=== PATIENT | male | born 1950 | race African-American/Black ===

== ENCOUNTER 2017-06-07 17:33 | Inpatient (IN) | payer MEDICARE, MEDICAID ==
[~2017-06-07] VITALS: Ht 172.7 cm; Wt 69.9 kg
[~2017-06-07 17:33] MED LIST: ALLO100T PO; ASPI-1159 PO; BACL-141 PO; DOCU-150 PO; DULO60CA44 PO; FOLI-43 PO; GABA-531 PO; MELA3TAB36 PO; MULT-1146 PO; TAMS-11 PO
[2017-06-07 18:08] LABS: BASOPHILS % 1.3 % (0.0-2.0); HEMOGLOBIN. 9.4 g/dL (14.0-18.0); LYMPHOCYTES % 24.5 % (20.0-50.0); MEAN CORPUSCULAR VOLUME 92.6 fL (80.0-94.0); MEAN PLATELET VOLUME 9.5 fl (7.4-10.4); MONOCYTES % 14.8 % (2.0-8.0); NEUTROPHILS % 57.4 % (40.0-76.0); PLATELET 193 x1000/uL (130-400); RED BLOOD CELL COUNT 3.24 mill/uL (4.7-6.1)
[2017-06-07 18:10] LABS: INR 1.1
[2017-06-07 18:23] LABS: CHLORIDE 95 mEq/L (98-107)
[2017-06-07 18:24] LABS: CARBON DIOXIDE 38 mEq/L (21-32)
[2017-06-07 18:31] LABS: TROPONIN I < 0.02 ng/mL (0.00-0.04)
[2017-06-07] MEDS ORDERED: TRAMADOL 50MG TABLET PO PRN (21:15)
[2017-06-07] MEDS ORDERED: NITROGLYCERIN 0.4MG TABLET SL SL PRN (21:15)
[2017-06-07] MEDS ORDERED: IPRATROPIUM/ALBUTEROL 0.5-3(2.5)MG/3ML NEB INH PRN (21:15)
[2017-06-07] MEDS ORDERED: CLONIDINE 0.1MG TABLET PO PRN (21:15)
[2017-06-07] MEDS ORDERED: LORAZEPAM 2MG/ML CPJ IV PRN (21:15)
[2017-06-07] MEDS ORDERED: MAGNESIUM/ALUMINUM HYDROXIDE/SIMETHICONE 30ML UDC PO PRN (21:15)
[2017-06-07] MEDS ORDERED: ONDANSETRON HCL 4MG/2ML VIAL IV PRN (21:15)
[2017-06-07] MEDS ORDERED: ACETAMINOPHEN 325MG TABLET PO PRN (21:15)
[2017-06-07] MEDS ORDERED: NA PHOS,M-B/NA PHOS,DI-BA ENEMA 118ML PR PRN (21:15)
[2017-06-07] MEDS ORDERED: GUAIFENESIN 200MG/10ML SUGAR FREE UDC PO PRN (21:15)
[2017-06-07 21:50] LABS: T4 FREE 1.11 ng/dL (0.76-1.46)
[2017-06-07 22:09] LABS: CREATINE KINASE 79 IU/L (39-308); TROPONIN I < 0.02 ng/mL (0.00-0.04)
[2017-06-07 22:09] LABS: VITAMIN B12 SERUM 464 pg/mL (211-911)
[2017-06-07 22:16] LABS: FOLIC ACID (FOLATE) SERUM > 20.00 ng/mL (>5.38)
[2017-06-07 23:15] VITALS: BP 138/65
[2017-06-08] VITALS: BP 138/65
[2017-06-08] MEDS ORDERED: LEVOFLOXACIN 500MG PREMIX 100 ML IV SCH (03:00)
[2017-06-08 04:00] VITALS: BP 159/66
[2017-06-08] MEDS: BACLOFEN 10MG TABLET PO SCH ×3 (06:27→20:34)
[2017-06-08] MEDS: GABAPENTIN 300MG CAPSULE PO SCH ×3 (06:27→20:34)
[2017-06-08] MEDS: MORPHINE SULFATE 2 MG/ML CPJ (NOT FOR IM USE) IV PRN ×2 (06:32→20:38)
[2017-06-08 07:35] LABS: CREATINE KINASE 65 IU/L (39-308); CREATINE KINASE MB FRACTION 2.3 ng/mL (0.5-3.6); TROPONIN I < 0.02 ng/mL (0.00-0.04)
[2017-06-08 08:00] VITALS: BP 128/70
[2017-06-08 08:50] LABS: *AMPHETAMINES SCREEN URINE NEGATIVE (NEGATIVE); *BARBITURATES SCREEN URINE NEGATIVE (NEGATIVE); *BENZODIAZEPINES SCREEN URINE NEGATIVE (NEGATIVE); *COCAINE SCREEN URINE NEGATIVE (NEGATIVE); CANNABINOID URINE SCREEN NEGATIVE (NEGATIVE); METHADONE URINE SCREEN NEGATIVE (NEGATIVE); OPIATES URINE SCREEN PRESUMTIVE POSITIVE (NEGATIVE); PHENCYCLIDINE URINE SCREEN NEGATIVE (NEGATIVE)
[2017-06-08] MEDS: PANTOPRAZOLE SODIUM 40 MG/VIAL IV SCH (09:00)
[2017-06-08] MEDS: ASPIRIN 325MG EC TABLET PO SCH (09:33)
[2017-06-08] MEDS: TAMSULOSIN HCL 0.4MG SR CAPSULE PO SCH (09:34)
[2017-06-08] MEDS: ENOXAPARIN 40MG/0.4ML SYR SUBCUT SCH (09:34)
[2017-06-08] MEDS: ALLOPURINOL 100 MG TABLET PO SCH (09:34)
[2017-06-08] MEDS: ZINC SULFATE 220 MG ( 50 ) CAPSULE PO SCH (09:34)
[2017-06-08] MEDS: METOPROLOL TARTRATE 25MG TABLET PO SCH ×2 (09:35→20:33)
[2017-06-08 10:21] LABS: CLARITY URINE CLOUDY (CLEAR); COLOR URINE DARK YELLOW (YELLOW); GLUCOSE URINE NEGATIVE (NEGATIVE); KETONES URINE TRACE (NEGATIVE); NITRITE URINE NEGATIVE (NEGATIVE); OCCULT BLOOD URINE NEGATIVE (NEGATIVE); PROTEIN URINE NEGATIVE (NEGATIVE); SPECIFIC GRAVITY URINE 1.024 (1.005-1.030)
[2017-06-08 10:22] LABS: LEUKOCYTE ESTERASE URINE NEGATIVE (NEGATIVE)
[2017-06-08 12:00] VITALS: BP 104/66
[2017-06-08] MEDS: DOCUSATE SODIUM 100MG CAPSULE PO PRN (15:14)
[2017-06-08 16:00] VITALS: BP 109/66
[2017-06-08 20:00] VITALS: BP 149/71
[2017-06-09] VITALS: BP_SYST 127; BP_SYST 149; BP_DIAS 65; BP_DIAS 77
[2017-06-09 04:00] VITALS: BP_SYST 153; BP_DIAS 65; BP_DIAS 75
[2017-06-09] MEDS: BACLOFEN 10MG TABLET PO SCH ×3 (05:08→20:49)
[2017-06-09] MEDS: GABAPENTIN 300MG CAPSULE PO SCH ×3 (05:08→20:49)
[2017-06-09] MEDS: LEVOFLOXACIN 500MG PREMIX 100 ML IV SCH (05:09)
[2017-06-09] MEDS: MORPHINE SULFATE 2 MG/ML CPJ (NOT FOR IM USE) IV PRN ×3 (05:16→20:50)
[2017-06-09 07:54] LABS: BASOPHILS % 0.9 % (0.0-2.0); EOSINOPHILS % 2.6 % (0.0-5.0); HEMATOCRIT. 30.5 % (42.0-52.0); HEMOGLOBIN. 9.7 g/dL (14.0-18.0); LYMPHOCYTES % 17.1 % (20.0-50.0); MEAN CORPUSCULAR VOLUME 91.5 fL (80.0-94.0); MEAN PLATELET VOLUME 10.3 fl (7.4-10.4); MONOCYTES % 13.4 % (2.0-8.0); PLATELET 165 x1000/uL (130-400); RED BLOOD CELL COUNT 3.33 mill/uL (4.7-6.1); RED CELL DISTRIBUTION WIDTH 16.3 % (11.6-14.6)
[2017-06-09 08:00] VITALS: BP 140/76
[2017-06-09 08:26] LABS: CHLORIDE 96 mEq/L (98-107)
[2017-06-09] MEDS: PANTOPRAZOLE SODIUM 40 MG/VIAL IV SCH (08:30)
[2017-06-09] MEDS: ZINC SULFATE 220 MG ( 50 ) CAPSULE PO SCH (08:31)
[2017-06-09] MEDS: METOPROLOL TARTRATE 25MG TABLET PO SCH ×2 (08:32→20:50)
[2017-06-09] MEDS: TAMSULOSIN HCL 0.4MG SR CAPSULE PO SCH (08:32)
[2017-06-09] MEDS: ALLOPURINOL 100 MG TABLET PO SCH (08:33)
[2017-06-09] MEDS: ENOXAPARIN 40MG/0.4ML SYR SUBCUT SCH (08:33)
[2017-06-09] MEDS: ASPIRIN 325MG EC TABLET PO SCH (08:34)
[2017-06-09 09:29] LABS: CARBON DIOXIDE 38 mEq/L (21-32); CREATINE KINASE 89 IU/L (39-308); HDL CHOLESTEROL 51 mg/dL (40-59); LDL CHOLESTEROL 51 mg/dL (5-100); TROPONIN I < 0.02 ng/mL (0.00-0.04)
[2017-06-09 12:00] VITALS: BP 123/62
[2017-06-09 16:00] VITALS: BP 128/60
[2017-06-09 20:00] VITALS: BP 138/71
[2017-06-09] MEDS: ZOLPIDEM TARTRATE 5MG TABLET PO PRN (20:53)
[2017-06-10] VITALS: BP 126/72
[2017-06-10 04:00] VITALS: BP 132/65
[2017-06-10] MEDS: BACLOFEN 10MG TABLET PO SCH ×3 (06:14→22:00)
[2017-06-10] MEDS: GABAPENTIN 300MG CAPSULE PO SCH ×3 (06:14→22:00)
[2017-06-10] MEDS: LEVOFLOXACIN 500MG PREMIX 100 ML IV SCH (06:14)
[2017-06-10] MEDS: MORPHINE SULFATE 2 MG/ML CPJ (NOT FOR IM USE) IV PRN ×3 (06:14→20:07)
[2017-06-10 08:00] VITALS: BP 118/66
[2017-06-10] MEDS: DOCUSATE SODIUM 100MG CAPSULE PO PRN (08:33)
[2017-06-10] MEDS: TAMSULOSIN HCL 0.4MG SR CAPSULE PO SCH (08:33)
[2017-06-10] MEDS: ALLOPURINOL 100 MG TABLET PO SCH (08:33)
[2017-06-10] MEDS: PANTOPRAZOLE SODIUM 40 MG/VIAL IV SCH (08:33)
[2017-06-10] MEDS: ASPIRIN 325MG EC TABLET PO SCH (08:34)
[2017-06-10] MEDS: ZINC SULFATE 220 MG ( 50 ) CAPSULE PO SCH (08:34)
[2017-06-10] MEDS: ENOXAPARIN 40MG/0.4ML SYR SUBCUT SCH (08:34)
[2017-06-10] MEDS: METOPROLOL TARTRATE 25MG TABLET PO SCH ×2 (08:38→22:00)
[2017-06-10 12:00] VITALS: BP 96/54
[2017-06-10] MEDS ORDERED: MAGNESIUM 2 G PREMIX 50 ML IV SCH (12:00)
[2017-06-10 16:00] VITALS: BP 100/56
[2017-06-10 20:00] VITALS: BP 122/67
[2017-06-10] MEDS: ZOLPIDEM TARTRATE 5MG TABLET PO PRN (22:00)
[2017-06-11 00:15] VITALS: BP 119/63
[2017-06-11 04:00] VITALS: BP_SYST 102; BP_SYST 120; BP_DIAS 46; BP_DIAS 84
[2017-06-11 06:28] LABS: HEMATOCRIT. 31.3 % (42.0-52.0); HEMOGLOBIN. 9.9 g/dL (14.0-18.0); MEAN CORPUSCULAR HEMOGLOBIN 28.9 pg (28.0-32.0); MEAN CORPUSCULAR VOLUME 91.6 fL (80.0-94.0); MEAN PLATELET VOLUME 10.4 fl (7.4-10.4); PLATELET 157 x1000/uL (130-400); RED BLOOD CELL COUNT 3.42 mill/uL (4.7-6.1); RED CELL DISTRIBUTION WIDTH 16.8 % (11.6-14.6)
[2017-06-11] MEDS: BACLOFEN 10MG TABLET PO SCH ×3 (06:29→21:01)
[2017-06-11] MEDS: GABAPENTIN 300MG CAPSULE PO SCH ×3 (06:29→21:01)
[2017-06-11 07:28] LABS: CHLORIDE 100 mEq/L (98-107)
[2017-06-11 07:32] LABS: CARBON DIOXIDE 36 mEq/L (21-32)
[2017-06-11 08:00] VITALS: BP 136/82
[2017-06-11] MEDS: ZINC SULFATE 220 MG ( 50 ) CAPSULE PO SCH (08:23)
[2017-06-11] MEDS: METOPROLOL TARTRATE 25MG TABLET PO SCH ×2 (08:24→20:59)
[2017-06-11] MEDS: ASPIRIN 325MG EC TABLET PO SCH (08:24)
[2017-06-11] MEDS: PANTOPRAZOLE 40MG DR TABLET PO SCH (08:24)
[2017-06-11] MEDS: ENOXAPARIN 40MG/0.4ML SYR SUBCUT SCH (08:24)
[2017-06-11] MEDS: ALLOPURINOL 100 MG TABLET PO SCH (10:16)
[2017-06-11] MEDS: TAMSULOSIN HCL 0.4MG SR CAPSULE PO SCH (10:16)
[2017-06-11] MEDS: MORPHINE SULFATE 2 MG/ML CPJ (NOT FOR IM USE) IV PRN ×3 (10:26→23:42)
[2017-06-11] MEDS: LEVOFLOXACIN 500MG TABLET PO SCH (10:28)
[2017-06-11 12:00] VITALS: BP 123/68
[2017-06-11 14:11] LABS: PLATELET ESTIMATE NORMAL
[2017-06-11 16:00] VITALS: BP 121/72
[2017-06-11] MEDS: DEXAMETHASONE 4MG/ML 1ML VIAL IV SCH ×2 (18:28→23:41)
[2017-06-11] MEDS: DOCUSATE SODIUM 100MG CAPSULE PO PRN (18:28)
[2017-06-11 20:00] VITALS: BP 120/81
[2017-06-11] MEDS: ZOLPIDEM TARTRATE 5MG TABLET PO PRN (21:01)
[2017-06-12] VITALS: BP 108/59
[2017-06-12 04:00] VITALS: BP 131/66
[2017-06-12] MEDS: MORPHINE SULFATE 2 MG/ML CPJ (NOT FOR IM USE) IV PRN ×4 (04:08→21:16)
[2017-06-12] MEDS: DEXAMETHASONE 4MG/ML 1ML VIAL IV SCH ×3 (05:12→17:35)
[2017-06-12] MEDS: GABAPENTIN 300MG CAPSULE PO SCH ×3 (05:13→21:12)
[2017-06-12] MEDS: BACLOFEN 10MG TABLET PO SCH ×3 (05:13→21:12)
[2017-06-12 08:00] VITALS: BP 144/83
[2017-06-12] MEDS: ENOXAPARIN 40MG/0.4ML SYR SUBCUT SCH (09:00)
[2017-06-12] MEDS: ZINC SULFATE 220 MG ( 50 ) CAPSULE PO SCH (10:31)
[2017-06-12] MEDS: ALLOPURINOL 100 MG TABLET PO SCH (10:32)
[2017-06-12] MEDS: TAMSULOSIN HCL 0.4MG SR CAPSULE PO SCH (10:32)
[2017-06-12] MEDS: LEVOFLOXACIN 500MG TABLET PO SCH (10:32)
[2017-06-12] MEDS: PANTOPRAZOLE 40MG DR TABLET PO SCH (10:32)
[2017-06-12] MEDS: METOPROLOL TARTRATE 25MG TABLET PO SCH ×2 (10:33→20:27)
[2017-06-12 12:00] VITALS: BP 137/85
[2017-06-12] MEDS: DOCUSATE SODIUM 100MG CAPSULE PO PRN (14:09)
[2017-06-12 16:00] VITALS: BP 140/52
[2017-06-12 20:00] VITALS: BP 120/71
[2017-06-12] MEDS: ZOLPIDEM TARTRATE 5MG TABLET PO PRN (21:12)
[2017-06-13] VITALS: BP 120/67
[2017-06-13] MEDS: DEXAMETHASONE 4MG/ML 1ML VIAL IV SCH ×3 (00:02→12:35)
[2017-06-13 04:00] VITALS: BP 137/67
[2017-06-13] MEDS: BACLOFEN 10MG TABLET PO SCH ×2 (05:35→14:23)
[2017-06-13] MEDS: GABAPENTIN 300MG CAPSULE PO SCH ×2 (05:35→14:23)
[2017-06-13 08:00] VITALS: BP 148/73
[2017-06-13] MEDS: METOPROLOL TARTRATE 25MG TABLET PO SCH (08:09)
[2017-06-13] MEDS: MORPHINE SULFATE 2 MG/ML CPJ (NOT FOR IM USE) IV PRN ×2 (08:11→12:35)
[2017-06-13] MEDS: TAMSULOSIN HCL 0.4MG SR CAPSULE PO SCH (08:12)
[2017-06-13] MEDS: ZINC SULFATE 220 MG ( 50 ) CAPSULE PO SCH (08:12)
[2017-06-13] MEDS: ALLOPURINOL 100 MG TABLET PO SCH (08:13)
[2017-06-13] MEDS ORDERED: FAMOTIDINE 20MG TABLET PO SCH (09:00)
[2017-06-13 12:00] VITALS: BP 158/48
[2017-06-13] MEDS: LEVOFLOXACIN 500MG TABLET PO SCH (12:34)
[2017-06-13 13:41] VITALS: BP 158/48
[2017-06-13 16:00] VITALS: BP 145/59
== END 2017-06-13 16:35 | DRG 91 ==
LOC: ER 17:49 → 7WST 20:52 → SUPCPDRO 21:04 → ENRESERV 22:35 → 7WST 23:49
PROVIDERS: ADMIT Internal Medicine; ATTEND Internal Medicine
DX: G95.89 Other specified diseases of spinal cord (principal); G82.50 Quadriplegia, unspecified; E44.0 Moderate protein-calorie malnutrition; I42.9 Cardiomyopathy, unspecified; R07.89 Other chest pain; G95.20 Unspecified cord compression; N40.0 Benign prostatic hyperplasia without lower urinary tract symptoms; J44.9 Chronic obstructive pulmonary disease, unspecified; I11.9 Hypertensive heart disease without heart failure; R74.0 Nonspecific elevation of levels of transaminase and lactic acid dehydrogenase [LDH]; M48.02 Spinal stenosis, cervical region; M25.78 Osteophyte, vertebrae; D63.8 Anemia in other chronic diseases classified elsewhere; E11.51 Type 2 diabetes mellitus with diabetic peripheral angiopathy without gangrene; F32.9 Major depressive disorder, single episode, unspecified; Z79.82 Long term (current) use of aspirin; Z86.73 Personal history of transient ischemic attack (TIA), and cerebral infarction without residual deficits
CPT/HCPCS: 36415; 70551; 71010; 72141; 80053; 80061; 80305; 81001; 82270; 82550; 82553; 82607; 82746; 82962; 83036; 83540; 83550; 83605; 83735; 83880; 84439; 84443; 84484; 85025; 85379; 85610; 87040; 87086; 93005; 93306; 93970; 94664; 97110; 97116; 97162; 97166; 99285; C1893; C9113; J1100; J1650; J1956; J2270; J3475; J7050; J7620

== ENCOUNTER 2017-06-18 05:10 | Inpatient (IN) | payer MEDICARE, MEDICAID ==
[~2017-06-18] VITALS: Ht 170.2 cm; Wt 66.8 kg
[~2017-06-18 05:10] MED LIST changes: -ASPI-1159 PO; +MELA3TAB PO; -MELA3TAB36 PO
[2017-06-18] MEDS ORDERED: SODIUM CHLORIDE 0.9% 1,000 ML IV ONE (05:51)
[2017-06-18 06:27] LABS: INR 1.1; PROTHROMBIN TIME 11.2 sec
[2017-06-18 06:29] LABS: BASOPHILS % 0.8 % (0.0-2.0); HEMATOCRIT. 29.6 % (42.0-52.0); HEMOGLOBIN. 9.5 g/dL (14.0-18.0); LYMPHOCYTES % 13.7 % (20.0-50.0); MEAN CORPUSCULAR HEMOGLOBIN 29.6 pg (28.0-32.0); MEAN PLATELET VOLUME 10.6 fl (7.4-10.4); MONOCYTES % 9.4 % (2.0-8.0); NEUTROPHILS % 73.1 % (40.0-76.0); PLATELET 269 x1000/uL (130-400); RED BLOOD CELL COUNT 3.21 mill/uL (4.7-6.1); RED CELL DISTRIBUTION WIDTH 16.2 % (11.6-14.6)
[2017-06-18 06:37] LABS: CARBON DIOXIDE 39 mEq/L (21-32); CHLORIDE 101 mEq/L (98-107)
[2017-06-18] MEDS ORDERED: DEXT 5%/0.45% NACL 1000ML 1,000 ML IV SCH (07:27)
[2017-06-18] MEDS ORDERED: ZOLPIDEM TARTRATE 5MG TABLET PO PRN (07:30)
[2017-06-18] MEDS ORDERED: MORPHINE SULFATE 4 MG/ML CPJ (NOT FOR IM USE) IV PRN (07:30)
[2017-06-18] MEDS ORDERED: LORAZEPAM 2MG/ML CPJ IV PRN (07:30)
[2017-06-18] MEDS ORDERED: NA PHOS,M-B/NA PHOS,DI-BA ENEMA 118ML PR PRN (07:30)
[2017-06-18] MEDS ORDERED: NITROGLYCERIN 0.4MG TABLET SL SL PRN (07:30)
[2017-06-18] MEDS ORDERED: DIPHENHYDRAMINE 50MG/ML VIAL IV PRN (07:30)
[2017-06-18] MEDS ORDERED: CLONIDINE 0.1MG TABLET PO PRN (07:30)
[2017-06-18] MEDS ORDERED: IPRATROPIUM/ALBUTEROL 0.5-3(2.5)MG/3ML NEB INH PRN (07:30)
[2017-06-18] MEDS ORDERED: ONDANSETRON HCL 4MG/2ML VIAL IV PRN (07:30)
[2017-06-18] MEDS ORDERED: ACETAMINOPHEN 325MG TABLET PO PRN (07:30)
[2017-06-18] MEDS ORDERED: DEXT 5%/LACTATED RINGERS 1,000 ML IV SCH ×2 (07:33→11:15)
[2017-06-18] MEDS ORDERED: FAMOTIDINE 20MG/2ML VIAL IV SCH ×2 (09:00→11:15)
[2017-06-18] MEDS ORDERED: GELATIN SPONGE,ABSORBABLE SZ 100 ONE (11:28)
[2017-06-18] MEDS ORDERED: NORMAL SALINE 0.9% 10 ML SYR ONE (11:28)
[2017-06-18] MEDS ORDERED: THROMBIN (BOVINE) 5000 UNITS/VIAL TOP ONE (11:28)
[2017-06-18] MEDS ORDERED: LIDOCAINE HCL/EPINEPHRINE 1%-EPI 1:100,000 50 ML VIAL INFIL ONE (11:29)
[2017-06-18] MEDS ORDERED: BACITRACIN 50,000 UNITS/VIAL ONE (11:29)
[2017-06-18] MEDS ORDERED: NICARDIPINE 50 MG in SODIUM CHLORIDE 0.9% 230 ML IV PRN (13:00)
[2017-06-18] MEDS ORDERED: PROPOFOL 200MG/20ML VIAL IV ONE (13:16)
[2017-06-18] MEDS ORDERED: PHENYLEPHRINE HCL 10 MG/ML 1ML (IV VIAL) IV ONE (13:16)
[2017-06-18] MEDS ORDERED: SUCCINYLCHOLINE CHLORIDE 200MG/10ML VIAL IV ONE (13:16)
[2017-06-18] MEDS ORDERED: VECURONIUM BROMIDE 10 MG/VIAL IV ONE (13:16)
[2017-06-18] MEDS ORDERED: LIDOCAINE HCL 1% 20ML VIAL (Pyxis) INJ ONE (13:16)
[2017-06-18] MEDS ORDERED: METHYLPREDNISOLONE SOD SUCC 125 MG/2 ML VIAL IV SCH ×2 (14:00→16:30)
[2017-06-18] MEDS ORDERED: CEFAZOLIN SODIUM 1000MG/VIAL ONE (14:26)
[2017-06-18] MEDS ORDERED: GLYCOPYRROLATE 0.2 MG/ML 2ML VIAL ONE ×2 (15:29→15:56)
[2017-06-18] MEDS ORDERED: NEOSTIGMINE METHYLSULFATE 1MG/ML 10 ML VIAL ONE (15:29)
[2017-06-18] MEDS ORDERED: FENTANYL CITRATE/PF 50MCG/ML 2ML VIAL ONE (15:54)
[2017-06-18] MEDS ORDERED: MIDAZOLAM HCL 2 MG/2 ML VIAL ONE (15:54)
[2017-06-18] MEDS ORDERED: HYDRALAZINE 20MG/ML VIAL ONE ×2 (15:56→16:03)
[2017-06-18] MEDS ORDERED: SODIUM CHLORIDE 0.9% 10ML VIAL ONE (16:03)
[2017-06-18] MEDS ORDERED: EPHEDRINE SULFATE 50MG/ML VIAL ONE (16:03)
[2017-06-18] MEDS ORDERED: PANTOPRAZOLE SODIUM 40 MG/VIAL IV SCH (16:30)
[2017-06-18] MEDS ORDERED: DIPHENHYDRAMINE INJ IV PRN (17:00)
[2017-06-18] MEDS ORDERED: HYDROMORPHONE HCL/PF 2MG/ML CPJ IV NR (17:00)
[2017-06-18] MEDS ORDERED: NALOXONE INJ IV PRN (17:00)
[2017-06-18] MEDS ORDERED: ONDANSETRON INJ IV PRN (17:00)
[2017-06-18 17:02] LABS: BG BASE EXCESS 2.7 mmol/L (-2.0-2.0); BG CARBOXYHEMOGLOBIN 0.5 % (0.5-1.5); BG DEOXYHEMOGLOBIN 3.5 % (0.0-5.0); BG FRACTION INSPIRED OXYGEN 50; BG HCO3 ACT 28.3 mmol/L (22.0-26.0); BG METHEMOGLOBIN 0.3 % (0.0-1.5); BG OXYGEN SATURATION 96.5 % (92.0-98.5); BG OXYHEMOGLOBIN 95.7 % (94.0-97.0); BG PCO2 49.1 mmHg (35.0-45.0); BG PH 7.379 (7.350-7.450); BG PO2 88.5 mmHg (75.0-100.0); BG SAMPLE SITE A-LINE; BG TIDAL VOLUME(mL) 500 mL; BG TOTAL HEMOGLOBIN 9.5 g/dL (12.0-18.0); BG VENT MODE VENT - A/C; BG VENT RATE 10 set
[2017-06-18] MEDS: DEXT 5%/LACTATED RINGERS 1,000 ML IV SCH (17:11)
[2017-06-18] MEDS: DEXAMETHASONE 4MG/ML 1ML VIAL IV SCH (17:11)
[2017-06-18] MEDS ORDERED: NICARDIPINE 100 MG in SODIUM CHLORIDE 0.9% 60 ML IV PRN (17:30)
[2017-06-18] MEDS: CEFAZOLIN 1000MG PREMIX 50 ML IV SCH (17:30)
[2017-06-18] MEDS: HYDROMORPHONE PCA 10MG/50ML IV PRN (18:01)
[2017-06-18 18:40] LABS: INR 1.1; PARTIAL THROMBOPLASTIN TIME 28.3 sec (24.0-34.0)
[2017-06-18 18:45] LABS: CARBON DIOXIDE 32 mEq/L (21-32); CHLORIDE 104 mEq/L (98-107)
[2017-06-18 19:01] LABS: BG BASE EXCESS 3.8 mmol/L (-2.0-2.0); BG CARBOXYHEMOGLOBIN 0.4 % (0.5-1.5); BG DEOXYHEMOGLOBIN 2.8 % (0.0-5.0); BG FRACTION INSPIRED OXYGEN 40; BG HCO3 ACT 29.6 mmol/L (22.0-26.0); BG METHEMOGLOBIN 0.2 % (0.0-1.5); BG OXYGEN SATURATION 97.2 % (92.0-98.5); BG OXYHEMOGLOBIN 96.6 % (94.0-97.0); BG PCO2 50.7 mmHg (35.0-45.0); BG PH 7.384 (7.350-7.450); BG PO2 94.2 mmHg (75.0-100.0); BG PRESSURE SUPPORT 6; BG SAMPLE SITE A-LINE; BG TOTAL HEMOGLOBIN 10.2 g/dL (12.0-18.0); BG VENT MODE VENT - CPAP
[2017-06-18 21:21] LABS: BASOPHILS % 0.2 % (0.0-2.0); EOSINOPHILS % 1.8 % (0.0-5.0); HEMATOCRIT. 29.3 % (42.0-52.0); LYMPHOCYTES % 16.2 % (20.0-50.0); MEAN CORPUSCULAR HEMOGLOBIN 28.5 pg (28.0-32.0); MEAN CORPUSCULAR VOLUME 92.6 fL (80.0-94.0); MEAN PLATELET VOLUME 11.4 fl (7.4-10.4); MONOCYTES % 13.1 % (2.0-8.0); NEUTROPHILS % 68.7 % (40.0-76.0); PLATELET 270 x1000/uL (130-400); RED BLOOD CELL COUNT 3.16 mill/uL (4.7-6.1); RED CELL DISTRIBUTION WIDTH 16.3 % (11.6-14.6)
[2017-06-19] MEDS: IPRATROPIUM/ALBUTEROL 0.5-3(2.5)MG/3ML NEB HHN SCH ×7 (00:04→21:11)
[2017-06-19] MEDS: CEFAZOLIN 1000MG PREMIX 50 ML IV SCH ×3 (01:10→20:17)
[2017-06-19] MEDS: DEXAMETHASONE 4MG/ML 1ML VIAL IV SCH ×5 (01:10→23:14)
[2017-06-19] MEDS: DEXT 5%/LACTATED RINGERS 1,000 ML IV SCH ×2 (05:05→18:51)
[2017-06-19] MEDS ORDERED: BISACODYL 5MG TABLET PO PRN (10:00)
[2017-06-19] MEDS ORDERED: DOCUSATE SODIUM 250MG CAPSULE PO SCH (10:30)
[2017-06-19] MEDS ORDERED: NICOTINE 21MG PATCH TD SCH (11:00)
[2017-06-19] MEDS: OMEPRAZOLE 20MG CAPSULE EXTENDED RELEASE PO SCH (11:15)
[2017-06-19] MEDS: DOCUSATE SODIUM SUGAR FREE 100MG/10ML UDC PO SCH (12:45)
[2017-06-19] MEDS: ZOLPIDEM TARTRATE 5MG TABLET PO PRN (23:15)
[2017-06-20] MEDS: IPRATROPIUM/ALBUTEROL 0.5-3(2.5)MG/3ML NEB HHN SCH ×5 (00:07→15:41)
[2017-06-20] MEDS: HYDROMORPHONE PCA 10MG/50ML IV PRN (02:28)
[2017-06-20] MEDS: CEFAZOLIN 1000MG PREMIX 50 ML IV SCH ×3 (04:45→22:01)
[2017-06-20] MEDS: DEXAMETHASONE 4MG/ML 1ML VIAL IV SCH ×4 (06:36→23:16)
[2017-06-20] MEDS: OMEPRAZOLE 20MG CAPSULE EXTENDED RELEASE PO SCH (06:36)
[2017-06-20] MEDS: DOCUSATE SODIUM SUGAR FREE 100MG/10ML UDC PO SCH (09:38)
[2017-06-20] MEDS: DEXT 5%/LACTATED RINGERS 1,000 ML IV SCH ×2 (09:39→22:06)
[2017-06-20] MEDS ORDERED: BISACODYL 10MG SUPP PR PRN (14:00)
[2017-06-20] MEDS: LACTULOSE 20G/30ML UDC PO SCH ×3 (18:42→22:00)
[2017-06-20] MEDS: DOCUSATE SODIUM 100MG CAPSULE PO SCH (18:42)
[2017-06-20] MEDS: POLYETHYLENE GLYCOL 3350 (17GM) 1 DOSE PACK PO SCH (20:46)
[2017-06-20] MEDS: ZOLPIDEM TARTRATE 5MG TABLET PO PRN (22:01)
[2017-06-21] MEDS: LACTULOSE 20G/30ML UDC PO SCH (02:00)
[2017-06-21] MEDS: DEXAMETHASONE 4MG/ML 1ML VIAL IV SCH ×3 (05:25→18:21)
[2017-06-21] MEDS: CEFAZOLIN 1000MG PREMIX 50 ML IV SCH ×3 (05:25→21:30)
[2017-06-21] MEDS: OMEPRAZOLE 20MG CAPSULE EXTENDED RELEASE PO SCH (06:38)
[2017-06-21] MEDS ORDERED: NA PHOS,M-B/NA PHOS,DI-BA ENEMA 118ML PR NR (08:00)
[2017-06-21] MEDS: NICOTINE 21MG PATCH TD SCH ×2 (09:00→09:52)
[2017-06-21] MEDS: DOCUSATE SODIUM 100MG CAPSULE PO SCH ×2 (09:00→17:00)
[2017-06-21] MEDS: BISACODYL 10MG SUPP PR SCH (09:00)
[2017-06-21] MEDS: MORPHINE SULFATE 4 MG/ML CPJ (NOT FOR IM USE) IV PRN ×3 (12:32→20:17)
[2017-06-21] MEDS: IPRATROPIUM/ALBUTEROL 0.5-3(2.5)MG/3ML NEB HHN SCH ×3 (16:55→23:35)
[2017-06-21] MEDS: POLYETHYLENE GLYCOL 3350 (17GM) 1 DOSE PACK PO SCH (21:30)
[2017-06-21] MEDS: ZOLPIDEM TARTRATE 5MG TABLET PO PRN (22:09)
[2017-06-22] MEDS ORDERED: NA PHOS,M-B/NA PHOS,DI-BA ENEMA 118ML PR PRN
[2017-06-22] MEDS: MORPHINE SULFATE 4 MG/ML CPJ (NOT FOR IM USE) IV PRN ×6 (00:07→21:48)
[2017-06-22] MEDS: DEXAMETHASONE 4MG/ML 1ML VIAL IV SCH ×4 (00:07→17:19)
[2017-06-22] MEDS: IPRATROPIUM/ALBUTEROL 0.5-3(2.5)MG/3ML NEB HHN SCH ×5 (03:27→19:57)
[2017-06-22] MEDS: CEFAZOLIN 1000MG PREMIX 50 ML IV SCH ×3 (06:41→21:47)
[2017-06-22] MEDS: OMEPRAZOLE 20MG CAPSULE EXTENDED RELEASE PO SCH (06:41)
[2017-06-22] MEDS: NICOTINE 21MG PATCH TD SCH (08:39)
[2017-06-22] MEDS: DOCUSATE SODIUM 100MG CAPSULE PO SCH ×2 (08:40→17:19)
[2017-06-22] MEDS: BISACODYL 10MG SUPP PR SCH (08:40)
[2017-06-22] MEDS: TAMSULOSIN HCL 0.4MG SR CAPSULE PO SCH (20:21)
[2017-06-22] MEDS: POLYETHYLENE GLYCOL 3350 (17GM) 1 DOSE PACK PO SCH (20:26)
[2017-06-22] MEDS: ZOLPIDEM TARTRATE 5MG TABLET PO PRN (22:58)
[2017-06-23] MEDS: IPRATROPIUM/ALBUTEROL 0.5-3(2.5)MG/3ML NEB HHN SCH ×6 (00:27→20:33)
[2017-06-23] MEDS: DEXAMETHASONE 4MG/ML 1ML VIAL IV SCH ×4 (00:58→17:14)
[2017-06-23] MEDS: MORPHINE SULFATE 4 MG/ML CPJ (NOT FOR IM USE) IV PRN ×5 (02:44→20:09)
[2017-06-23] MEDS: CEFAZOLIN 1000MG PREMIX 50 ML IV SCH ×3 (06:55→22:32)
[2017-06-23] MEDS: OMEPRAZOLE 20MG CAPSULE EXTENDED RELEASE PO SCH (07:44)
[2017-06-23] MEDS: BISACODYL 10MG SUPP PR SCH (09:00)
[2017-06-23] MEDS: NICOTINE 21MG PATCH TD SCH (09:07)
[2017-06-23] MEDS: DOCUSATE SODIUM 100MG CAPSULE PO SCH ×2 (09:07→17:14)
[2017-06-23] MEDS ORDERED: NA PHOS,M-B/NA PHOS,DI-BA ENEMA 118ML PR NR (09:45)
[2017-06-23] MEDS: LACTULOSE 20G/30ML UDC PO SCH ×3 (11:00→17:14)
[2017-06-23] MEDS: POLYETHYLENE GLYCOL 3350 (17GM) 1 DOSE PACK PO SCH ×2 (20:08→20:17)
[2017-06-23] MEDS: TAMSULOSIN HCL 0.4MG SR CAPSULE PO SCH (20:08)
[2017-06-23] MEDS: ZOLPIDEM TARTRATE 5MG TABLET PO PRN (22:28)
[2017-06-23] MEDS: HYDROCODONE/ACETAMINOPHEN 10/325MG TABLET PO PRN (22:29)
[2017-06-24] MEDS: DEXAMETHASONE 4MG/ML 1ML VIAL IV SCH ×5 (00:08→23:38)
[2017-06-24] MEDS: MORPHINE SULFATE 4 MG/ML CPJ (NOT FOR IM USE) IV PRN ×5 (00:26→22:20)
[2017-06-24] MEDS: IPRATROPIUM/ALBUTEROL 0.5-3(2.5)MG/3ML NEB HHN SCH ×6 (00:29→21:12)
[2017-06-24] MEDS: CEFAZOLIN 1000MG PREMIX 50 ML IV SCH ×3 (05:12→22:21)
[2017-06-24] MEDS: DOCUSATE SODIUM 100MG CAPSULE PO SCH ×2 (08:18→18:05)
[2017-06-24] MEDS: OMEPRAZOLE 20MG CAPSULE EXTENDED RELEASE PO SCH (08:18)
[2017-06-24] MEDS: NICOTINE 21MG PATCH TD SCH (08:19)
[2017-06-24] MEDS: HYDROCODONE/ACETAMINOPHEN 10/325MG TABLET PO PRN ×3 (08:22→20:08)
[2017-06-24] MEDS: BISACODYL 10MG SUPP PR SCH (08:31)
[2017-06-24] MEDS: TAMSULOSIN HCL 0.4MG SR CAPSULE PO SCH (20:10)
[2017-06-24] MEDS: POLYETHYLENE GLYCOL 3350 (17GM) 1 DOSE PACK PO SCH (20:12)
[2017-06-24] MEDS ORDERED: ZOLPIDEM TARTRATE 5MG TABLET PO PRN (23:30)
[2017-06-25] MEDS: IPRATROPIUM/ALBUTEROL 0.5-3(2.5)MG/3ML NEB HHN SCH ×4 (01:55→12:05)
[2017-06-25] MEDS: HYDROCODONE/ACETAMINOPHEN 10/325MG TABLET PO PRN ×2 (01:58→08:20)
[2017-06-25] MEDS: MORPHINE SULFATE 4 MG/ML CPJ (NOT FOR IM USE) IV PRN ×2 (02:25→06:26)
[2017-06-25] MEDS: CEFAZOLIN 1000MG PREMIX 50 ML IV SCH ×2 (06:24→13:35)
[2017-06-25] MEDS: DEXAMETHASONE 4MG/ML 1ML VIAL IV SCH ×2 (06:25→12:19)
[2017-06-25] MEDS: DOCUSATE SODIUM 100MG CAPSULE PO SCH (08:19)
[2017-06-25] MEDS: BISACODYL 10MG SUPP PR SCH (08:20)
[2017-06-25] MEDS: NICOTINE 21MG PATCH TD SCH (08:20)
[2017-06-25] MEDS ORDERED: FAMOTIDINE 20MG TABLET PO SCH (09:00)
[2017-06-25] MEDS ORDERED: NA PHOS,M-B/NA PHOS,DI-BA ENEMA 118ML PR SCH (13:00)
[2017-06-25] MEDS ORDERED: ZOLPIDEM TARTRATE 5MG TABLET PO PRN (13:00)
[2017-06-25] MEDS ORDERED: HYDROCODONE/ACETAMINOPHEN 10/325MG TABLET PO PRN (13:15)
[2017-06-25] MEDS ORDERED: LACTULOSE 20G/30ML UDC PO SCH (14:00)
[2017-06-25 15:04] VITALS: BP 154/66
[2017-06-26] MEDS ORDERED: BISACODYL 10MG SUPP PR SCH ×2 (08:10→09:00)
== END 2017-06-25 16:05 | DRG 471 ==
LOC: ER 05:20 → MICUNO 05:54 → EDBEDREQ 06:01 → EDBEDREQSVC 10:06 → EDBEDREQTM 10:06 → ER 11:00 → ENRESERV 13:21 → CANBEDREQ 16:10 → MICUSO 06-19 14:55 → MICUNO 06-20 08:35 → 5EST 06-20 10:30 → 8WST 06-20 18:55
PROVIDERS: ADMIT Internal Medicine; ATTEND Internal Medicine
PROC: 0RG2071 Fusion of 2 or more Cervical Vertebral Joints with Autologous Tissue Substitute, Posterior Approach, Posterior Column, Open Approach (ICD-10-PCS; principal; 2017-06-18)
PROC: 01N10ZZ Release Cervical Nerve, Open Approach (ICD-10-PCS; 2017-06-18)
PROC: 0RB30ZZ Excision of Cervical Vertebral Disc, Open Approach (ICD-10-PCS; 2017-06-18)
DX: M48.02 Spinal stenosis, cervical region (principal); J95.821 Acute postprocedural respiratory failure; G82.50 Quadriplegia, unspecified; G95.89 Other specified diseases of spinal cord; R13.10 Dysphagia, unspecified; J44.1 Chronic obstructive pulmonary disease with (acute) exacerbation; I42.9 Cardiomyopathy, unspecified; D63.8 Anemia in other chronic diseases classified elsewhere; I10 Essential (primary) hypertension; M54.12 Radiculopathy, cervical region; N40.0 Benign prostatic hyperplasia without lower urinary tract symptoms; S14.129A Central cord syndrome at unspecified level of cervical spinal cord, initial encounter; Z72.0 Tobacco use; R26.9 Unspecified abnormalities of gait and mobility; E11.9 Type 2 diabetes mellitus without complications; F17.200 Nicotine dependence, unspecified, uncomplicated; Z86.73 Personal history of transient ischemic attack (TIA), and cerebral infarction without residual deficits
CPT/HCPCS: 36415; 36600; 71010; 72040; 72141; 80048; 80053; 82375; 82805; 85025; 85610; 85730; 86850; 86900; 88304; 88311; 92610; 93005; 93970; 94002; 94640; 94664; 97116; 97162; 97530; 99285; A4216; C1893; C9113; J0171; J0330; J0360; J0690; J1100; J1170; J2250; J2270; J2370; J2704; J2710; J3010; J3490; J7030; J7040; J7050; J7620; L0172

== ENCOUNTER 2017-06-25 16:06 | Inpatient (IN) | payer MEDICARE, MEDICAID ==
[~2017-06-25] VITALS: Ht 175.3 cm; Wt 68.9 kg
[2017-06-25 16:06] VITALS: BP 156/98
[2017-06-25] MEDS ORDERED: ONDANSETRON HCL 4MG TABLET PO PRN (17:30)
[2017-06-25] MEDS ORDERED: BISACODYL 10MG SUPP PR PRN (17:30)
[2017-06-25] MEDS ORDERED: NITROGLYCERIN 0.4MG TABLET SL SL PRN (17:30)
[2017-06-25] MEDS ORDERED: ACETAMINOPHEN 650MG/20.3ML UDC PO PRN (17:30)
[2017-06-25] MEDS ORDERED: IPRATROPIUM/ALBUTEROL 0.5-3(2.5)MG/3ML NEB HHN PRN (17:30)
[2017-06-25] MEDS ORDERED: NA PHOS,M-B/NA PHOS,DI-BA ENEMA 118ML PR PRN (17:30)
[2017-06-25] MEDS ORDERED: DIPHENHYDRAMINE 25MG CAPSULE PO PRN (17:30)
[2017-06-25] MEDS: DEXAMETHASONE 4MG TABLET PO SCH ×2 (18:04→23:36)
[2017-06-25] MEDS: HYDROCODONE/ACETAMINOPHEN 10/325MG TABLET PO PRN ×2 (18:05→23:37)
[2017-06-25 19:00] VITALS: BP 177/88
[2017-06-25] MEDS: IPRATROPIUM/ALBUTEROL 0.5-3(2.5)MG/3ML NEB HHN SCH (19:59)
[2017-06-25] MEDS: FAMOTIDINE 20MG TABLET PO SCH (20:33)
[2017-06-25] MEDS: POLYETHYLENE GLYCOL 3350 (17GM) 1 DOSE PACK PO SCH ×3 (20:33→21:00)
[2017-06-25] MEDS: CLONIDINE 0.1MG TABLET PO PRN (20:34)
[2017-06-25] MEDS: ZOLPIDEM TARTRATE 5MG TABLET PO PRN (22:21)
[2017-06-26] MEDS: TAMSULOSIN HCL 0.4MG SR CAPSULE PO SCH ×2 (00:33→21:36)
[2017-06-26] MEDS: IPRATROPIUM/ALBUTEROL 0.5-3(2.5)MG/3ML NEB HHN SCH ×5 (01:37→21:53)
[2017-06-26] MEDS: DEXAMETHASONE 4MG TABLET PO SCH (06:07)
[2017-06-26 06:48] LABS: HEMOGLOBIN. 8.4 g/dL (14.0-18.0); MEAN CORPUSCULAR HEMOGLOBIN 28.1 pg (28.0-32.0); MEAN PLATELET VOLUME 9.3 fl (7.4-10.4); PLATELET 311 x1000/uL (130-400); RED CELL DISTRIBUTION WIDTH 17.1 % (11.6-14.6)
[2017-06-26 07:19] LABS: CARBON DIOXIDE 34 mEq/L (21-32); CHLORIDE 95 mEq/L (98-107)
[2017-06-26 07:22] LABS: PREALBUMIN 19.6 mg/dL (20.0-40.0)
[2017-06-26 08:00] VITALS: BP 163/76
[2017-06-26] MEDS: FAMOTIDINE 20MG TABLET PO SCH ×2 (08:48→21:35)
[2017-06-26] MEDS: DOCUSATE SODIUM 100MG CAPSULE PO SCH ×2 (08:48→18:08)
[2017-06-26] MEDS: CLONIDINE 0.1MG TABLET PO PRN (08:48)
[2017-06-26] MEDS: HYDROCODONE/ACETAMINOPHEN 10/325MG TABLET PO PRN (08:50)
[2017-06-26] MEDS ORDERED: NICOTINE 21MG PATCH TD SCH (09:00)
[2017-06-26] MEDS ORDERED: OXYCODONE HCL 5MG TABLET PO PRN (11:15)
[2017-06-26] MEDS: LACTULOSE 20G/30ML UDC PO SCH ×2 (12:00→16:00)
[2017-06-26 14:10] VITALS: BP 146/70
[2017-06-26] MEDS: BUDESONIDE 0.5MG/2ML NEB HHN SCH ×2 (14:14→21:53)
[2017-06-26] MEDS: MORPHINE SULFATE 15MG TABLET SR PO SCH ×2 (14:23→22:25)
[2017-06-26 17:40] LABS: PLATELET ESTIMATE NORMAL
[2017-06-26] MEDS: DEXAMETHASONE 2MG TABLET PO SCH (18:08)
[2017-06-26 18:14] VITALS: BP 130/67
[2017-06-26] MEDS: OXYCODONE HCL 5MG TABLET PO PRN (18:14)
[2017-06-26 20:00] VITALS: BP 128/60
[2017-06-26] MEDS: POLYETHYLENE GLYCOL 3350 (17GM) 1 DOSE PACK PO SCH (21:00)
[2017-06-26] MEDS: ZOLPIDEM TARTRATE 5MG TABLET PO PRN (23:14)
[2017-06-27] MEDS: OXYCODONE HCL 5MG TABLET PO PRN ×3 (01:46→16:37)
[2017-06-27] MEDS: IPRATROPIUM/ALBUTEROL 0.5-3(2.5)MG/3ML NEB HHN SCH ×6 (01:50→20:33)
[2017-06-27] MEDS: MORPHINE SULFATE 15MG TABLET SR PO SCH ×3 (06:15→21:33)
[2017-06-27 06:31] LABS: CLARITY URINE CLEAR (CLEAR); COLOR URINE YELLOW (YELLOW); GLUCOSE URINE NEGATIVE (NEGATIVE); KETONES URINE NEGATIVE (NEGATIVE); LEUKOCYTE ESTERASE URINE NEGATIVE (NEGATIVE); NITRITE URINE NEGATIVE (NEGATIVE); OCCULT BLOOD URINE NEGATIVE (NEGATIVE); PH URINE 7.5 (4.5-8.0); PROTEIN URINE NEGATIVE (NEGATIVE); SPECIFIC GRAVITY URINE 1.005 (1.005-1.030); UROBILINOGEN URINE 0.2 E.U./dL (0.2-1.0)
[2017-06-27 07:01] LABS: CARBON DIOXIDE 36 mEq/L (21-32); CHLORIDE 95 mEq/L (98-107)
[2017-06-27 07:09] LABS: HEMATOCRIT. 27.1 % (42.0-52.0); HEMOGLOBIN. 8.5 g/dL (14.0-18.0); MEAN CORPUSCULAR HEMOGLOBIN 28.1 pg (28.0-32.0); MEAN CORPUSCULAR VOLUME 89.2 fL (80.0-94.0); PLATELET 340 x1000/uL (130-400); RED BLOOD CELL COUNT 3.04 mill/uL (4.7-6.1); RED CELL DISTRIBUTION WIDTH 16.7 % (11.6-14.6)
[2017-06-27 08:00] VITALS: BP 140/73
[2017-06-27] MEDS: BISACODYL 10MG SUPP PR SCH (09:00)
[2017-06-27] MEDS: DOCUSATE SODIUM 100MG CAPSULE PO SCH ×2 (09:06→16:00)
[2017-06-27] MEDS: FAMOTIDINE 20MG TABLET PO SCH ×2 (09:06→20:44)
[2017-06-27] MEDS: DEXAMETHASONE 2MG TABLET PO SCH ×2 (09:06→16:00)
[2017-06-27] MEDS: NICOTINE 14MG PATCH TD SCH (10:22)
[2017-06-27] MEDS: BUDESONIDE 0.5MG/2ML NEB HHN SCH ×2 (12:26→20:33)
[2017-06-27] MEDS: ENOXAPARIN 40MG/0.4ML SYR SUBCUT SCH (15:59)
[2017-06-27 16:42] LABS: NUCLEATED RED BLOOD CELLS 1 /100 WBC; PLATELET ESTIMATE NORMAL
[2017-06-27 20:00] VITALS: BP 127/59
[2017-06-27] MEDS: TAMSULOSIN HCL 0.4MG SR CAPSULE PO SCH (20:44)
[2017-06-27] MEDS: POLYETHYLENE GLYCOL 3350 (17GM) 1 DOSE PACK PO SCH (20:44)
[2017-06-27] MEDS: ZOLPIDEM TARTRATE 5MG TABLET PO PRN (22:48)
[2017-06-28] MEDS: IPRATROPIUM/ALBUTEROL 0.5-3(2.5)MG/3ML NEB HHN SCH ×6 (00:13→21:11)
[2017-06-28] MEDS: OXYCODONE HCL 5MG TABLET PO PRN ×3 (00:33→17:26)
[2017-06-28] MEDS: MORPHINE SULFATE 15MG TABLET SR PO SCH ×3 (06:17→21:07)
[2017-06-28] MEDS: BUDESONIDE 0.5MG/2ML NEB HHN SCH ×2 (07:28→21:11)
[2017-06-28 07:59] LABS: BASOPHILS % 0.1 % (0.0-2.0); EOSINOPHILS % 0.8 % (0.0-5.0); HEMATOCRIT. 26.9 % (42.0-52.0); HEMOGLOBIN. 8.6 g/dL (14.0-18.0); LYMPHOCYTES % 8.8 % (20.0-50.0); MEAN CORPUSCULAR HEMOGLOBIN 28.5 pg (28.0-32.0); MEAN CORPUSCULAR VOLUME 89.2 fL (80.0-94.0); MEAN PLATELET VOLUME 9.2 fl (7.4-10.4); MONOCYTES % 12.6 % (2.0-8.0); NEUTROPHILS % 77.7 % (40.0-76.0); PLATELET 292 x1000/uL (130-400); RED BLOOD CELL COUNT 3.01 mill/uL (4.7-6.1); RED CELL DISTRIBUTION WIDTH 17.2 % (11.6-14.6)
[2017-06-28 08:00] VITALS: BP 125/88
[2017-06-28 08:04] LABS: CARBON DIOXIDE 36 mEq/L (21-32); CHLORIDE 97 mEq/L (98-107); HDL CHOLESTEROL 86 mg/dL (40-59); LDL CHOLESTEROL 57 mg/dL (5-100); PHOSPHORUS 3.5 mg/dL (2.5-4.9); TOTAL IRON BINDING CAPACITY 415 ug/dL (250-450)
[2017-06-28] MEDS: ENOXAPARIN 40MG/0.4ML SYR SUBCUT SCH (08:30)
[2017-06-28] MEDS: FAMOTIDINE 20MG TABLET PO SCH ×2 (08:30→21:08)
[2017-06-28] MEDS: DOCUSATE SODIUM 100MG CAPSULE PO SCH ×2 (08:30→17:24)
[2017-06-28] MEDS: DEXAMETHASONE 2MG TABLET PO SCH ×2 (08:30→17:24)
[2017-06-28] MEDS: BISACODYL 10MG SUPP PR SCH (08:31)
[2017-06-28] MEDS: NICOTINE 14MG PATCH TD SCH (08:31)
[2017-06-28 09:05] LABS: FOLIC ACID (FOLATE) SERUM 14.2 ng/mL (>5.38)
[2017-06-28 09:41] LABS: PROSTRATE SPECIFIC AG TOTAL 1.11 ng/mL (0.0-4.0)
[2017-06-28] MEDS: MUPIROCIN 2% OINT 22GM NS SCH ×2 (09:45→21:08)
[2017-06-28] MEDS ORDERED: ALPRAZOLAM 0.5 MG TABLET PO PRN (10:15)
[2017-06-28 11:30] VITALS: BP 132/54
[2017-06-28 17:20] VITALS: BP 117/67
[2017-06-28 20:00] VITALS: BP 142/59
[2017-06-28] MEDS ORDERED: IRON SUCROSE COMPLEX 100 MG in SODIUM CHLORIDE 0.9% 100 ML IV SCH (21:00)
[2017-06-28] MEDS: POLYETHYLENE GLYCOL 3350 (17GM) 1 DOSE PACK PO SCH (21:00)
[2017-06-28] MEDS: TAMSULOSIN HCL 0.4MG SR CAPSULE PO SCH (21:07)
[2017-06-28] MEDS: ZOLPIDEM TARTRATE 5MG TABLET PO PRN (23:17)
[2017-06-29] MEDS: IRON SUCROSE COMPLEX 100 MG in SODIUM CHLORIDE 0.9% 100 ML IV SCH (00:24)
[2017-06-29] MEDS: IPRATROPIUM/ALBUTEROL 0.5-3(2.5)MG/3ML NEB HHN SCH ×7 (00:50→23:59)
[2017-06-29] MEDS: OXYCODONE HCL 5MG TABLET PO PRN ×4 (00:56→20:08)
[2017-06-29] MEDS: CLONIDINE 0.1MG TABLET PO PRN (04:22)
[2017-06-29] MEDS: MORPHINE SULFATE 15MG TABLET SR PO SCH ×3 (06:55→22:49)
[2017-06-29] MEDS: BUDESONIDE 0.5MG/2ML NEB HHN SCH (07:39)
[2017-06-29 08:00] VITALS: BP 121/58
[2017-06-29] MEDS: ENOXAPARIN 40MG/0.4ML SYR SUBCUT SCH (08:46)
[2017-06-29] MEDS: DOCUSATE SODIUM 100MG CAPSULE PO SCH ×2 (08:46→17:12)
[2017-06-29] MEDS: DEXAMETHASONE 2MG TABLET PO SCH ×2 (08:46→17:12)
[2017-06-29] MEDS: BISACODYL 10MG SUPP PR SCH (08:46)
[2017-06-29] MEDS: FAMOTIDINE 20MG TABLET PO SCH ×2 (08:46→20:43)
[2017-06-29] MEDS: NICOTINE 14MG PATCH TD SCH (08:47)
[2017-06-29] MEDS: MUPIROCIN 2% OINT 22GM NS SCH ×2 (08:47→20:44)
[2017-06-29 20:00] VITALS: BP 115/62
[2017-06-29] MEDS: TAMSULOSIN HCL 0.4MG SR CAPSULE PO SCH (20:43)
[2017-06-29] MEDS: POLYETHYLENE GLYCOL 3350 (17GM) 1 DOSE PACK PO SCH ×2 (20:43→21:00)
[2017-06-29 23:02] VITALS: BP 118/60
[2017-06-30] MEDS: ZOLPIDEM TARTRATE 5MG TABLET PO PRN ×2 (00:01→23:07)
[2017-06-30] MEDS: IRON SUCROSE COMPLEX 100 MG in SODIUM CHLORIDE 0.9% 100 ML IV SCH ×2 (00:02→23:47)
[2017-06-30] MEDS: IPRATROPIUM/ALBUTEROL 0.5-3(2.5)MG/3ML NEB HHN SCH ×5 (04:12→21:16)
[2017-06-30] MEDS: MORPHINE SULFATE 15MG TABLET SR PO SCH ×3 (05:51→22:00)
[2017-06-30 07:49] VITALS: BP 145/63
[2017-06-30 08:50] LABS: HEMATOCRIT. 24.2 % (42.0-52.0); HEMOGLOBIN. 7.6 g/dL (14.0-18.0); MEAN CORPUSCULAR HEMOGLOBIN 28.4 pg (28.0-32.0); MEAN CORPUSCULAR VOLUME 89.8 fL (80.0-94.0); MEAN PLATELET VOLUME 8.9 fl (7.4-10.4); PLATELET 286 x1000/uL (130-400); RED BLOOD CELL COUNT 2.69 mill/uL (4.7-6.1); RED CELL DISTRIBUTION WIDTH 17.4 % (11.6-14.6)
[2017-06-30] MEDS: ENOXAPARIN 40MG/0.4ML SYR SUBCUT SCH (08:55)
[2017-06-30] MEDS: MUPIROCIN 2% OINT 22GM NS SCH ×2 (08:56→21:00)
[2017-06-30] MEDS: FAMOTIDINE 20MG TABLET PO SCH ×2 (08:58→21:59)
[2017-06-30] MEDS: DEXAMETHASONE 2MG TABLET PO SCH ×2 (08:58→16:54)
[2017-06-30] MEDS: DOCUSATE SODIUM 100MG CAPSULE PO SCH ×2 (08:58→16:54)
[2017-06-30] MEDS: NICOTINE 14MG PATCH TD SCH (08:58)
[2017-06-30] MEDS: BISACODYL 10MG SUPP PR SCH (08:59)
[2017-06-30 09:12] LABS: CARBON DIOXIDE 33 mEq/L (21-32); CHLORIDE 99 mEq/L (98-107)
[2017-06-30] MEDS: OXYCODONE HCL 5MG TABLET PO PRN ×3 (09:49→22:00)
[2017-06-30 10:38] LABS: PLATELET ESTIMATE NORMAL
[2017-06-30] MEDS: CYANOCOBALAMIN 1000MCG/ML VIAL IM SCH (11:54)
[2017-06-30 16:15] VITALS: BP 127/68
[2017-06-30 19:26] LABS: HEMATOCRIT 26.2 % (42.0-52.0); HEMOGLOBIN 8.3 g/dL (14.0-18.0); MEAN CORPUSCULAR HEMOGLOBIN 28.5 pg (28.0-32.0); PLATELET 310 x1000/uL (130-400); RED BLOOD CELL COUNT 2.92 mill/uL (4.7-6.1); RED CELL DISTRIBUTION WIDTH 17.3 % (11.6-14.6)
[2017-06-30 20:54] VITALS: BP 116/62
[2017-06-30] MEDS: POLYETHYLENE GLYCOL 3350 (17GM) 1 DOSE PACK PO SCH (21:00)
[2017-06-30] MEDS: TAMSULOSIN HCL 0.4MG SR CAPSULE PO SCH (21:59)
[2017-07-01] MEDS: IPRATROPIUM/ALBUTEROL 0.5-3(2.5)MG/3ML NEB HHN SCH ×6 (00:56→21:16)
[2017-07-01] MEDS: MORPHINE SULFATE 15MG TABLET SR PO SCH ×3 (06:57→22:50)
[2017-07-01 07:03] LABS: HEMATOCRIT. 25.8 % (42.0-52.0); HEMOGLOBIN. 8.1 g/dL (14.0-18.0); MEAN CORPUSCULAR HEMOGLOBIN 28.4 pg (28.0-32.0); MEAN CORPUSCULAR VOLUME 90.8 fL (80.0-94.0); MEAN PLATELET VOLUME 8.8 fl (7.4-10.4); PLATELET 303 x1000/uL (130-400); RED BLOOD CELL COUNT 2.85 mill/uL (4.7-6.1); RED CELL DISTRIBUTION WIDTH 17.6 % (11.6-14.6)
[2017-07-01 07:39] VITALS: BP 144/66
[2017-07-01] MEDS: BISACODYL 10MG SUPP PR SCH (09:00)
[2017-07-01] MEDS: NICOTINE 14MG PATCH TD SCH (09:02)
[2017-07-01] MEDS: MUPIROCIN 2% OINT 22GM NS SCH ×2 (09:03→21:00)
[2017-07-01] MEDS: FAMOTIDINE 20MG TABLET PO SCH ×2 (09:05→22:47)
[2017-07-01] MEDS: DEXAMETHASONE 2MG TABLET PO SCH ×2 (09:05→17:31)
[2017-07-01] MEDS: ENOXAPARIN 40MG/0.4ML SYR SUBCUT SCH (09:05)
[2017-07-01] MEDS: CYANOCOBALAMIN 1000MCG/ML VIAL IM SCH (09:05)
[2017-07-01] MEDS: DOCUSATE SODIUM 100MG CAPSULE PO SCH ×2 (09:05→17:30)
[2017-07-01] MEDS: OXYCODONE HCL 5MG TABLET PO PRN ×2 (09:10→15:27)
[2017-07-01 09:44] LABS: NUCLEATED RED BLOOD CELLS 1 /100 WBC; PLATELET ESTIMATE NORMAL
[2017-07-01] MEDS: GABAPENTIN 100MG CAPSULE PO SCH ×3 (12:05→22:47)
[2017-07-01] MEDS ORDERED: OXYCODONE HCL 5MG TABLET PO PRN (14:15)
[2017-07-01 14:20] VITALS: BP 149/55
[2017-07-01 15:20] VITALS: BP 111/47
[2017-07-01 17:12] LABS: 25-HYDROXY VITAMIN D3 11 ng/mL (.)
[2017-07-01 20:00] VITALS: BP 128/62
[2017-07-01] MEDS: POLYETHYLENE GLYCOL 3350 (17GM) 1 DOSE PACK PO SCH ×2 (21:00→22:52)
[2017-07-01] MEDS: TAMSULOSIN HCL 0.4MG SR CAPSULE PO SCH (22:49)
[2017-07-02] MEDS: ZOLPIDEM TARTRATE 5MG TABLET PO PRN ×2 (00:23→23:30)
[2017-07-02] MEDS: IPRATROPIUM/ALBUTEROL 0.5-3(2.5)MG/3ML NEB HHN SCH ×6 (00:43→21:20)
[2017-07-02] MEDS: IRON SUCROSE COMPLEX 100 MG in SODIUM CHLORIDE 0.9% 100 ML IV SCH (01:03)
[2017-07-02] MEDS: OXYCODONE HCL 5MG TABLET PO PRN ×3 (01:27→15:02)
[2017-07-02] MEDS: GABAPENTIN 100MG CAPSULE PO SCH ×2 (05:23→13:22)
[2017-07-02] MEDS: MORPHINE SULFATE 15MG TABLET SR PO SCH ×3 (05:24→21:32)
[2017-07-02 08:00] VITALS: BP 164/76
[2017-07-02] MEDS: NICOTINE 14MG PATCH TD SCH (09:50)
[2017-07-02] MEDS: DOCUSATE SODIUM 100MG CAPSULE PO SCH ×2 (09:50→17:45)
[2017-07-02] MEDS: DEXAMETHASONE 2MG TABLET PO SCH ×2 (09:50→17:45)
[2017-07-02] MEDS: FAMOTIDINE 20MG TABLET PO SCH ×2 (09:50→21:33)
[2017-07-02] MEDS: BISACODYL 10MG SUPP PR SCH (09:50)
[2017-07-02] MEDS: CYANOCOBALAMIN 1000MCG/ML VIAL IM SCH (09:51)
[2017-07-02] MEDS: MUPIROCIN 2% OINT 22GM NS SCH ×2 (09:51→21:29)
[2017-07-02] MEDS: ENOXAPARIN 40MG/0.4ML SYR SUBCUT SCH (09:51)
[2017-07-02 13:51] LABS: HEMATOCRIT. 26.6 % (42.0-52.0); HEMOGLOBIN. 8.3 g/dL (14.0-18.0); MEAN CORPUSCULAR HEMOGLOBIN 28.6 pg (28.0-32.0); MEAN CORPUSCULAR VOLUME 92.2 fL (80.0-94.0); MEAN PLATELET VOLUME 8.5 fl (7.4-10.4); PLATELET 277 x1000/uL (130-400); RED BLOOD CELL COUNT 2.89 mill/uL (4.7-6.1); RED CELL DISTRIBUTION WIDTH 17.9 % (11.6-14.6)
[2017-07-02 14:21] LABS: PLATELET ESTIMATE NORMAL
[2017-07-02 14:25] LABS: HAPTOGLOBIN 94 mg/dL (30-200)
[2017-07-02] MEDS ORDERED: ERGOCALCIFEROL 50000UNITS CAPSULE PO SCH (16:15)
[2017-07-02 19:00] VITALS: BP 128/58
[2017-07-02] MEDS: POLYETHYLENE GLYCOL 3350 (17GM) 1 DOSE PACK PO SCH (21:00)
[2017-07-02] MEDS: TAMSULOSIN HCL 0.4MG SR CAPSULE PO SCH (21:30)
[2017-07-02] MEDS: GABAPENTIN 300MG CAPSULE PO SCH (21:30)
[2017-07-03] MEDS: IPRATROPIUM/ALBUTEROL 0.5-3(2.5)MG/3ML NEB HHN SCH ×6 (00:45→20:32)
[2017-07-03] MEDS: GABAPENTIN 300MG CAPSULE PO SCH ×3 (05:54→21:05)
[2017-07-03] MEDS: MORPHINE SULFATE 15MG TABLET SR PO SCH ×3 (05:58→23:00)
[2017-07-03 08:00] VITALS: BP 158/74
[2017-07-03] MEDS: ENOXAPARIN 40MG/0.4ML SYR SUBCUT SCH (09:43)
[2017-07-03] MEDS: BISACODYL 10MG SUPP PR SCH (09:45)
[2017-07-03] MEDS: DEXAMETHASONE 2MG TABLET PO SCH ×2 (09:45→16:54)
[2017-07-03] MEDS: FAMOTIDINE 20MG TABLET PO SCH ×2 (09:45→21:06)
[2017-07-03] MEDS: DOCUSATE SODIUM 100MG CAPSULE PO SCH ×2 (09:45→16:54)
[2017-07-03] MEDS: CYANOCOBALAMIN 1000MCG/ML VIAL IM SCH (09:46)
[2017-07-03] MEDS: NICOTINE 14MG PATCH TD SCH (09:46)
[2017-07-03] MEDS: OXYCODONE HCL 5MG TABLET PO PRN ×2 (12:47→20:53)
[2017-07-03] MEDS: OXYBUTYNIN CHLORIDE 5MG TABLET PO SCH ×2 (14:42→21:04)
[2017-07-03] MEDS: LIDOCAINE 5% PATCH TOP SCH (14:43)
[2017-07-03] MEDS ORDERED: NA PHOS,M-B/NA PHOS,DI-BA ENEMA 118ML PR SCH (15:30)
[2017-07-03 20:00] VITALS: BP 112/56
[2017-07-03] MEDS: POLYETHYLENE GLYCOL 3350 (17GM) 1 DOSE PACK PO SCH (21:00)
[2017-07-03] MEDS: TAMSULOSIN HCL 0.4MG SR CAPSULE PO SCH (21:06)
[2017-07-03] MEDS: ZOLPIDEM TARTRATE 5MG TABLET PO PRN (21:54)
[2017-07-04] MEDS: IPRATROPIUM/ALBUTEROL 0.5-3(2.5)MG/3ML NEB HHN SCH ×5 (00:25→20:45)
[2017-07-04] MEDS: OXYCODONE HCL 5MG TABLET PO PRN ×3 (00:57→21:03)
[2017-07-04] MEDS: GABAPENTIN 300MG CAPSULE PO SCH ×3 (06:00→22:23)
[2017-07-04] MEDS: OXYBUTYNIN CHLORIDE 5MG TABLET PO SCH ×3 (06:01→21:56)
[2017-07-04] MEDS: MORPHINE SULFATE 15MG TABLET SR PO SCH ×3 (06:01→22:36)
[2017-07-04 06:43] LABS: BASOPHILS % 0.4 % (0.0-2.0); EOSINOPHILS % 0.2 % (0.0-5.0); HEMATOCRIT. 24.8 % (42.0-52.0); HEMOGLOBIN. 7.8 g/dL (14.0-18.0); LYMPHOCYTES % 7.6 % (20.0-50.0); MEAN CORPUSCULAR VOLUME 92.3 fL (80.0-94.0); MEAN PLATELET VOLUME 8.8 fl (7.4-10.4); MONOCYTES % 8.9 % (2.0-8.0); NEUTROPHILS % 82.9 % (40.0-76.0); PLATELET 244 x1000/uL (130-400); RED BLOOD CELL COUNT 2.68 mill/uL (4.7-6.1); RED CELL DISTRIBUTION WIDTH 18.4 % (11.6-14.6)
[2017-07-04 07:36] LABS: CARBON DIOXIDE 34 mEq/L (21-32); CHLORIDE 101 mEq/L (98-107)
[2017-07-04 08:00] VITALS: BP 142/61
[2017-07-04] MEDS: BISACODYL 10MG SUPP PR SCH (09:00)
[2017-07-04] MEDS ORDERED: NA PHOS,M-B/NA PHOS,DI-BA ENEMA 118ML PR PRN (09:00)
[2017-07-04] MEDS: DOCUSATE SODIUM 100MG CAPSULE PO SCH ×2 (10:09→17:03)
[2017-07-04] MEDS: FAMOTIDINE 20MG TABLET PO SCH ×2 (10:09→21:56)
[2017-07-04] MEDS: ENOXAPARIN 40MG/0.4ML SYR SUBCUT SCH (10:09)
[2017-07-04] MEDS: DEXAMETHASONE 2MG TABLET PO SCH ×2 (10:09→17:03)
[2017-07-04] MEDS: NICOTINE 14MG PATCH TD SCH (10:10)
[2017-07-04] MEDS: CYANOCOBALAMIN 1000MCG/ML VIAL IM SCH (10:10)
[2017-07-04] MEDS: LIDOCAINE 5% PATCH TOP SCH (11:13)
[2017-07-04 19:44] VITALS: BP 123/57
[2017-07-04 19:48] VITALS: BP 140/85
[2017-07-04] MEDS: POLYETHYLENE GLYCOL 3350 (17GM) 1 DOSE PACK PO SCH (21:00)
[2017-07-04] MEDS: TAMSULOSIN HCL 0.4MG SR CAPSULE PO SCH (21:56)
[2017-07-04] MEDS: ZOLPIDEM TARTRATE 5MG TABLET PO PRN (23:24)
[2017-07-05] MEDS: IPRATROPIUM/ALBUTEROL 0.5-3(2.5)MG/3ML NEB HHN SCH ×4 (00:52→12:06)
[2017-07-05] MEDS: MORPHINE SULFATE 15MG TABLET SR PO SCH ×2 (06:04→14:01)
[2017-07-05] MEDS: OXYBUTYNIN CHLORIDE 5MG TABLET PO SCH ×2 (06:04→14:01)
[2017-07-05] MEDS: GABAPENTIN 300MG CAPSULE PO SCH ×2 (06:04→14:00)
[2017-07-05 08:00] VITALS: BP 150/91
[2017-07-05] MEDS: BISACODYL 10MG SUPP PR SCH (09:00)
[2017-07-05] MEDS: NICOTINE 14MG PATCH TD SCH (09:07)
[2017-07-05] MEDS: FAMOTIDINE 20MG TABLET PO SCH (09:07)
[2017-07-05] MEDS: DEXAMETHASONE 2MG TABLET PO SCH (09:07)
[2017-07-05] MEDS: CYANOCOBALAMIN 1000MCG/ML VIAL IM SCH (09:07)
[2017-07-05] MEDS: ENOXAPARIN 40MG/0.4ML SYR SUBCUT SCH (09:07)
[2017-07-05] MEDS: OXYCODONE HCL 5MG TABLET PO PRN (09:08)
[2017-07-05] MEDS: DOCUSATE SODIUM 100MG CAPSULE PO SCH (09:08)
[2017-07-05] MEDS: LIDOCAINE 5% PATCH TOP SCH (09:09)
[2017-07-05 13:11] VITALS: BP 150/91
[2017-07-05 13:12] LABS: IMMUNOGLOBULIN A 316 mg/dL (61-437); IMMUNOGLOBULIN G 787 mg/dL (700-1600); IMMUNOGLOBULIN M 63 mg/dL (20-172)
[2017-07-05 14:01] VITALS: BP 128/58
== END 2017-07-05 15:48 | DRG 551 ==
PROVIDERS: ADMIT Physical Medicine & Rehabilitation Spinal Cord Injury Medicine; ATTEND Internal Medicine
PROC: 30233N1 Transfusion of Nonautologous Red Blood Cells into Peripheral Vein, Percutaneous Approach (ICD-10-PCS; principal; 2017-06-30)
DX: M48.02 Spinal stenosis, cervical region (principal); E43 Unspecified severe protein-calorie malnutrition; G82.50 Quadriplegia, unspecified; G95.89 Other specified diseases of spinal cord; K59.2 Neurogenic bowel, not elsewhere classified; I42.9 Cardiomyopathy, unspecified; R65.10 Systemic inflammatory response syndrome (SIRS) of non-infectious origin without acute organ dysfunction; E87.1 Hypo-osmolality and hyponatremia; J44.1 Chronic obstructive pulmonary disease with (acute) exacerbation; D63.8 Anemia in other chronic diseases classified elsewhere; D72.829 Elevated white blood cell count, unspecified; F17.210 Nicotine dependence, cigarettes, uncomplicated; G89.4 Chronic pain syndrome; I10 Essential (primary) hypertension; N31.9 Neuromuscular dysfunction of bladder, unspecified; R13.10 Dysphagia, unspecified; T38.0X5A Adverse effect of glucocorticoids and synthetic analogues, initial encounter; E11.9 Type 2 diabetes mellitus without complications; R26.9 Unspecified abnormalities of gait and mobility; E55.9 Vitamin D deficiency, unspecified; E61.1 Iron deficiency; F32.9 Major depressive disorder, single episode, unspecified; F43.10 Post-traumatic stress disorder, unspecified; K59.00 Constipation, unspecified; M47.812 Spondylosis without myelopathy or radiculopathy, cervical region; N40.1 Benign prostatic hyperplasia with lower urinary tract symptoms; N39.498 Other specified urinary incontinence; R39.15 Urgency of urination; N50.0 Atrophy of testis; E53.8 Deficiency of other specified B group vitamins; F06.31 Mood disorder due to known physiological condition with depressive features; R53.81 Other malaise; Z99.81 Dependence on supplemental oxygen; Z98.1 Arthrodesis status; Z79.899 Other long term (current) drug therapy; Z22.322 Carrier or suspected carrier of Methicillin resistant Staphylococcus aureus; Z68.22 Body mass index [BMI] 22.0-22.9, adult
CPT/HCPCS: 36415; 71020; 72040; 73521; 80048; 80053; 80061; 81003; 82270; 82306; 82607; 82728; 82746; 82784; 83010; 83036; 83540; 83550; 83615; 83735; 84100; 84134; 84153; 84443; 84630; 85025; 85027; 86334; 86850; 86900; 86920; 87040; 87086; 93970; 94640; 97110; 97112; 97116; 97163; 97167; 97530; 97535; C1893; J1650; J3420; J7050; J7620; J7626; J8540; L0172

== ENCOUNTER 2017-07-18 17:41 | Inpatient (IN) | payer MEDICARE, MEDICAID ==
[~2017-07-18] VITALS: Ht 175.3 cm; Wt 79.8 kg
[2017-07-18] MEDS ORDERED: SODIUM CHLORIDE 0.9% 1,000 ML IV ONE (18:08)
[2017-07-18] MEDS ORDERED: NALOXONE HCL 1 MG/ML 2ML VIAL IV ONE ×2 (18:15→19:15)
[2017-07-18 18:40] LABS: BG BASE EXCESS 10.7 mmol/L (-2.0-2.0); BG DEOXYHEMOGLOBIN 3.1 % (0.0-5.0); BG FRACTION INSPIRED OXYGEN 32; BG METHEMOGLOBIN 0.3 % (0.0-1.5); BG OXYGEN SATURATION 96.9 % (92.0-98.5); BG OXYHEMOGLOBIN 95.6 % (94.0-97.0); BG PCO2 84.1 mmHg (35.0-45.0); BG PH 7.295 (7.350-7.450); BG PO2 100.6 mmHg (75.0-100.0); BG SAMPLE SITE RIGHT RADIAL; BG TOTAL HEMOGLOBIN 11.1 g/dL (12.0-18.0); BG VENT MODE NASAL CANNULA
[2017-07-18 19:06] LABS: BASOPHILS % 0.2 % (0.0-2.0); EOSINOPHILS % 0.8 % (0.0-5.0); HEMATOCRIT. 31.6 % (42.0-52.0); HEMOGLOBIN. 9.9 g/dL (14.0-18.0); LYMPHOCYTES % 9.8 % (20.0-50.0); MEAN CORPUSCULAR HEMOGLOBIN 28.2 pg (28.0-32.0); MEAN CORPUSCULAR VOLUME 89.7 fL (80.0-94.0); MEAN PLATELET VOLUME 9.2 fl (7.4-10.4); MONOCYTES % 9.3 % (2.0-8.0); NEUTROPHILS % 79.9 % (40.0-76.0); PLATELET 273 x1000/uL (130-400); RED BLOOD CELL COUNT 3.53 mill/uL (4.7-6.1); RED CELL DISTRIBUTION WIDTH 18.1 % (11.6-14.6)
[2017-07-18 19:13] LABS: INR 1.1; PARTIAL THROMBOPLASTIN TIME 27.1 sec (23.4-31.0); PROTHROMBIN TIME 11.7 sec (9.4-11.6)
[2017-07-18 19:14] LABS: CHLORIDE 93 mEq/L (98-107)
[2017-07-18 19:17] LABS: AMMONIA 16 uMol/L (<32)
[2017-07-18 19:18] LABS: CARBON DIOXIDE 37 mEq/L (21-32)
[2017-07-18 19:24] LABS: ETHANOL BLOOD 132 mg/dL
[2017-07-18 19:26] LABS: TROPONIN I 0.12 ng/mL (0.00-0.04)
[2017-07-18] MEDS ORDERED: NALOXONE HCL 1 MG/ML 2ML VIAL IM ONE (20:00)
[2017-07-18] MEDS ORDERED: MAGNESIUM/ALUMINUM HYDROXIDE/SIMETHICONE 30ML UDC PO PRN (21:30)
[2017-07-18] MEDS ORDERED: ACETAMINOPHEN 325MG TABLET PO PRN (21:30)
[2017-07-18] MEDS ORDERED: NALOXONE HCL 0.4 MG/ML 1ML VIAL IV PRN (21:30)
[2017-07-18] MEDS ORDERED: NA PHOS,M-B/NA PHOS,DI-BA ENEMA 118ML PR PRN (21:30)
[2017-07-18] MEDS ORDERED: ONDANSETRON HCL 4MG/2ML VIAL IV PRN (21:30)
[2017-07-18] MEDS ORDERED: GUAIFENESIN 200MG/10ML SUGAR FREE UDC PO PRN (21:30)
[2017-07-18 22:00] VITALS: BP 154/89
[2017-07-18] MEDS: ENOXAPARIN 40MG/0.4ML SYR SUBCUT SCH (22:58)
[2017-07-18] MEDS: FAMOTIDINE 20MG/2ML VIAL IV SCH (22:58)
[2017-07-19] VITALS: BP 173/97
[2017-07-19] MEDS: CLONIDINE 0.1MG TABLET PO PRN ×2 (00:21→08:27)
[2017-07-19] MEDS ORDERED: MVI, ADULT NO.1 10 ML, FOLIC ACID 1 MG, THIAMINE HCL 100 MG in SODIUM CHLORIDE 0.9% 1,0... IV NR ×4 (01:00)
[2017-07-19] MEDS: CEFTRIAXONE 1 G PREMIX 50 ML IV SCH ×2 (01:24→23:51)
[2017-07-19 04:00] VITALS: BP 119/80
[2017-07-19 08:00] VITALS: BP 181/89
[2017-07-19] MEDS: FAMOTIDINE 20MG/2ML VIAL IV SCH ×2 (08:47→21:37)
[2017-07-19] MEDS: KETOROLAC 15MG/ML VIAL IV PRN ×3 (08:48→21:40)
[2017-07-19] MEDS ORDERED: HYDROCODONE/ACETAMINOPHEN 10/325MG TABLET PO PRN (10:00)
[2017-07-19] MEDS ORDERED: TRAMADOL 50MG TABLET PO PRN (10:00)
[2017-07-19 12:00] VITALS: BP 149/81
[2017-07-19 16:00] VITALS: BP 159/66
[2017-07-19] MEDS: IPRATROPIUM/ALBUTEROL 0.5-3(2.5)MG/3ML NEB INH PRN ×2 (16:01→22:52)
[2017-07-19 20:00] VITALS: BP 144/65
[2017-07-19] MEDS: ENOXAPARIN 40MG/0.4ML SYR SUBCUT SCH (21:37)
[2017-07-20] VITALS: BP 134/68
[2017-07-20 04:00] VITALS: BP 154/74
[2017-07-20] MEDS: KETOROLAC 15MG/ML VIAL IV PRN ×4 (05:20→22:57)
[2017-07-20] MEDS: IPRATROPIUM/ALBUTEROL 0.5-3(2.5)MG/3ML NEB INH PRN ×4 (05:35→16:07)
[2017-07-20 08:00] VITALS: BP 129/78
[2017-07-20] MEDS: FOLIC ACID 1MG TABLET PO SCH (09:27)
[2017-07-20] MEDS: THIAMINE HCL 100MG TABLET PO SCH (09:27)
[2017-07-20] MEDS: MULTIVITAMINS,THER W-MINERALS TABLET PO SCH (09:27)
[2017-07-20] MEDS: FAMOTIDINE 20MG/2ML VIAL IV SCH ×2 (10:01→21:52)
[2017-07-20 12:00] VITALS: BP 148/80
[2017-07-20 16:00] VITALS: BP 153/81
[2017-07-20] MEDS ORDERED: TRAMADOL 50MG TABLET PO PRN (17:00)
[2017-07-20 20:00] VITALS: BP 129/93
[2017-07-20] MEDS: IPRATROPIUM/ALBUTEROL 0.5-3(2.5)MG/3ML NEB INH SCH (20:47)
[2017-07-20] MEDS: ENOXAPARIN 40MG/0.4ML SYR SUBCUT SCH (21:52)
[2017-07-20] MEDS: CEFTRIAXONE 1 G PREMIX 50 ML IV SCH (22:57)
[2017-07-21] VITALS: BP 133/88
[2017-07-21] MEDS: IPRATROPIUM/ALBUTEROL 0.5-3(2.5)MG/3ML NEB INH SCH ×6 (01:03→20:39)
[2017-07-21 04:00] VITALS: BP 174/84
[2017-07-21] MEDS: CLONIDINE 0.1MG TABLET PO PRN (05:34)
[2017-07-21] MEDS: KETOROLAC 15MG/ML VIAL IV PRN ×3 (05:34→14:03)
[2017-07-21 08:00] VITALS: BP 150/80
[2017-07-21] MEDS: THIAMINE HCL 100MG TABLET PO SCH (09:10)
[2017-07-21] MEDS: FAMOTIDINE 20MG/2ML VIAL IV SCH ×2 (09:10→21:04)
[2017-07-21] MEDS: MULTIVITAMINS,THER W-MINERALS TABLET PO SCH (09:11)
[2017-07-21] MEDS: FOLIC ACID 1MG TABLET PO SCH (09:11)
[2017-07-21 12:00] VITALS: BP 142/85
[2017-07-21 16:00] VITALS: BP 147/78
[2017-07-21 20:00] VITALS: BP 142/72
[2017-07-21] MEDS: ENOXAPARIN 40MG/0.4ML SYR SUBCUT SCH (21:05)
[2017-07-21] MEDS: CEFTRIAXONE 1 G PREMIX 50 ML IV SCH (21:05)
[2017-07-21] MEDS ORDERED: ACETAMINOPHEN WITH CODEINE 300/30MG TABLET PO PRN (21:35)
[2017-07-22] VITALS: BP 143/69
[2017-07-22] MEDS: IPRATROPIUM/ALBUTEROL 0.5-3(2.5)MG/3ML NEB INH SCH ×6 (00:29→20:12)
[2017-07-22 04:00] VITALS: BP 148/109
[2017-07-22 08:00] VITALS: BP 150/105
[2017-07-22] MEDS: FOLIC ACID 1MG TABLET PO SCH (09:41)
[2017-07-22] MEDS: CLONIDINE 0.1MG TABLET PO PRN (09:41)
[2017-07-22] MEDS: FAMOTIDINE 20MG/2ML VIAL IV SCH ×2 (09:41→20:53)
[2017-07-22] MEDS: THIAMINE HCL 100MG TABLET PO SCH (09:41)
[2017-07-22] MEDS: MULTIVITAMINS,THER W-MINERALS TABLET PO SCH (09:41)
[2017-07-22 12:00] VITALS: BP 125/80
[2017-07-22] MEDS: HYDROCODONE/ACETAMINOPHEN 10/325MG TABLET PO PRN ×2 (15:35→20:54)
[2017-07-22 16:00] VITALS: BP 138/73
[2017-07-22 20:19] VITALS: BP 165/81
[2017-07-22] MEDS: ENOXAPARIN 40MG/0.4ML SYR SUBCUT SCH (20:53)
[2017-07-22] MEDS: CEFTRIAXONE 1 G PREMIX 50 ML IV SCH (22:19)
[2017-07-23 00:06] VITALS: BP 139/70
[2017-07-23] MEDS: IPRATROPIUM/ALBUTEROL 0.5-3(2.5)MG/3ML NEB INH SCH ×5 (00:34→16:27)
[2017-07-23] MEDS: HYDROCODONE/ACETAMINOPHEN 10/325MG TABLET PO PRN ×3 (02:28→14:39)
[2017-07-23 04:00] VITALS: BP 123/74
[2017-07-23 08:00] VITALS: BP 166/90
[2017-07-23] MEDS: THIAMINE HCL 100MG TABLET PO SCH (08:30)
[2017-07-23] MEDS: FOLIC ACID 1MG TABLET PO SCH (08:30)
[2017-07-23] MEDS: FAMOTIDINE 20MG/2ML VIAL IV SCH (08:30)
[2017-07-23] MEDS: MULTIVITAMINS,THER W-MINERALS TABLET PO SCH (08:30)
[2017-07-23 12:00] VITALS: BP 166/93
[2017-07-23] MEDS: CLONIDINE 0.1MG TABLET PO PRN (14:39)
[2017-07-23 16:00] VITALS: BP 141/76
== END 2017-07-23 18:55 | DRG 917 ==
LOC: ER 17:47 → EDBEDREQSVC 18:19 → EDBEDREQ 18:19 → 7WST 18:48 → EDBEDREQ 18:53 → CANRESERV 21:08 → ENRESERV 21:08
PROVIDERS: ADMIT Internal Medicine; ATTEND Internal Medicine
DX: T40.2X1A Poisoning by other opioids, accidental (unintentional), initial encounter (principal); G93.40 Encephalopathy, unspecified; I42.9 Cardiomyopathy, unspecified; E44.1 Mild protein-calorie malnutrition; I11.0 Hypertensive heart disease with heart failure; I50.9 Heart failure, unspecified; D63.8 Anemia in other chronic diseases classified elsewhere; E11.9 Type 2 diabetes mellitus without complications; F10.10 Alcohol abuse, uncomplicated; J44.9 Chronic obstructive pulmonary disease, unspecified; Y90.9 Presence of alcohol in blood, level not specified; M12.9 Arthropathy, unspecified; M48.00 Spinal stenosis, site unspecified; N40.0 Benign prostatic hyperplasia without lower urinary tract symptoms; F19.10 Other psychoactive substance abuse, uncomplicated; Z86.73 Personal history of transient ischemic attack (TIA), and cerebral infarction without residual deficits; Z95.1 Presence of aortocoronary bypass graft; Z98.1 Arthrodesis status; Z68.26 Body mass index [BMI] 26.0-26.9, adult
CPT/HCPCS: 36415; 36600; 70450; 71010; 72125; 80053; 80307; 80329; 82140; 82375; 82805; 83036; 83605; 83735; 83880; 84484; 85025; 85610; 85730; 87040; 93005; 93970; 94640; 94664; 96361; 96372; 96374; 97110; 97162; 97165; 97530; 99291; G0482; J0696; J1650; J1885; J2310; J3411; J3490; J7030; J7050; J7620

== ENCOUNTER 2017-08-21 06:24 | Inpatient (IN) | payer MEDICARE, MEDICAID ==
[~2017-08-21] VITALS: Ht 175.3 cm; Wt 63.5 kg
[2017-08-21] MEDS ORDERED: METHYLPREDNISOLONE SOD SUCC 125 MG/2 ML VIAL IV STA (06:29)
[2017-08-21] MEDS ORDERED: IPRATROPIUM BROMIDE (0.02%) 0.5MG/2.5ML NEB HHN STA (06:29)
[2017-08-21] MEDS ORDERED: ALBUTEROL (0.083%) 2.5MG/3ML NEB HHN STA (06:29)
[2017-08-21 06:50] LABS: INR 1.1; PROTHROMBIN TIME 11.2 sec (9.4-11.6)
[2017-08-21 06:57] LABS: BASOPHILS % 0.9 % (0.0-2.0); CARBON DIOXIDE 34 mEq/L (21-32); CHLORIDE 103 mEq/L (98-107); EOSINOPHILS % 2.8 % (0.0-5.0); HEMATOCRIT. 36.7 % (42.0-52.0); HEMOGLOBIN. 11.4 g/dL (14.0-18.0); LYMPHOCYTES % 18.2 % (20.0-50.0); MEAN CORPUSCULAR HEMOGLOBIN 27.9 pg (28.0-32.0); MEAN CORPUSCULAR VOLUME 89.7 fL (80.0-94.0); MEAN PLATELET VOLUME 10.1 fl (7.4-10.4); MONOCYTES % 3.9 % (2.0-8.0); NEUTROPHILS % 74.2 % (40.0-76.0); PLATELET 218 x1000/uL (130-400); RED BLOOD CELL COUNT 4.09 mill/uL (4.7-6.1); RED CELL DISTRIBUTION WIDTH 20.1 % (11.6-14.6)
[2017-08-21 06:59] LABS: TROPONIN I < 0.02 ng/mL (0.00-0.04)
[2017-08-21] MEDS ORDERED: ONDANSETRON HCL 4MG/2ML VIAL IV PRN (08:00)
[2017-08-21] MEDS ORDERED: LORAZEPAM 2MG/ML CPJ IV PRN (08:00)
[2017-08-21] MEDS ORDERED: DIPHENHYDRAMINE 50MG/ML VIAL IV PRN (08:00)
[2017-08-21] MEDS ORDERED: NA PHOS,M-B/NA PHOS,DI-BA ENEMA 118ML PR PRN (08:00)
[2017-08-21] MEDS ORDERED: MAGNESIUM/ALUMINUM HYDROXIDE/SIMETHICONE 30ML UDC PO PRN (08:00)
[2017-08-21] MEDS ORDERED: IPRATROPIUM/ALBUTEROL 0.5-3(2.5)MG/3ML NEB HHN SCH (08:00)
[2017-08-21] MEDS ORDERED: CLONIDINE 0.1MG TABLET PO PRN (08:00)
[2017-08-21] MEDS ORDERED: TRAMADOL 50MG TABLET PO PRN (08:00)
[2017-08-21] MEDS ORDERED: GUAIFENESIN 200MG/10ML SUGAR FREE UDC PO PRN (08:00)
[2017-08-21] MEDS ORDERED: ACETAMINOPHEN 325MG TABLET PO PRN (08:00)
[2017-08-21] MEDS ORDERED: NITROGLYCERIN 0.4MG TABLET SL SL PRN (08:00)
[2017-08-21] MEDS ORDERED: IPRATROPIUM/ALBUTEROL 0.5-3(2.5)MG/3ML NEB INH PRN (08:00)
[2017-08-21] MEDS ORDERED: LEVOFLOXACIN 500MG PREMIX 100 ML IV SCH ×2 (08:00→09:00)
[2017-08-21 08:23] LABS: BG CARBOXYHEMOGLOBIN 0.8 % (0.5-1.5); BG DEOXYHEMOGLOBIN 5.8 % (0.0-5.0); BG FRACTION INSPIRED OXYGEN 32; BG METHEMOGLOBIN 0.1 % (0.0-1.5); BG OXYGEN SATURATION 94.1 % (92.0-98.5); BG OXYHEMOGLOBIN 93.3 % (94.0-97.0); BG PCO2 75.6 mmHg (35.0-45.0); BG PH 7.271 (7.350-7.450); BG PO2 75.5 mmHg (75.0-100.0); BG SAMPLE SITE RIGHT BRACHIAL; BG TOTAL HEMOGLOBIN 11.8 g/dL (12.0-18.0); BG VENT MODE NASAL CANNULA
[2017-08-21] MEDS: MORPHINE SULFATE 2 MG/ML CPJ (NOT FOR IM USE) IV PRN ×2 (10:42→19:12)
[2017-08-21] MEDS: GUAIFENESIN/DM 600MG/30MG ER TAB 12HR PO SCH ×2 (11:07→21:18)
[2017-08-21] MEDS: ASPIRIN 325MG EC TABLET PO SCH (11:07)
[2017-08-21] MEDS: FAMOTIDINE 20MG/2ML VIAL IV SCH ×2 (11:12→21:18)
[2017-08-21] MEDS: ENOXAPARIN 40MG/0.4ML SYR SUBCUT SCH (11:15)
[2017-08-21 13:21] VITALS: BP 120/71
[2017-08-21 13:27] VITALS: BP 120/71
[2017-08-21] MEDS: DILTIAZEM HCL 30MG TABLET PO SCH ×2 (14:53→18:08)
[2017-08-21] MEDS: METHYLPREDNISOLONE SOD SUCC 125 MG/2 ML VIAL IV SCH ×2 (14:53→21:19)
[2017-08-21] MEDS: IPRATROPIUM/ALBUTEROL 0.5-3(2.5)MG/3ML NEB HHN SCH ×2 (15:56→21:14)
[2017-08-21 16:37] LABS: CREATINE KINASE MB FRACTION 6.3 ng/mL (0.5-3.6); TROPONIN I 0.12 ng/mL (0.00-0.04)
[2017-08-21 20:59] VITALS: BP 112/61
[2017-08-22] VITALS: BP 112/61
[2017-08-22] MEDS: DILTIAZEM HCL 30MG TABLET PO SCH ×4 (00:12→17:16)
[2017-08-22] MEDS: MORPHINE SULFATE 2 MG/ML CPJ (NOT FOR IM USE) IV PRN ×5 (00:13→20:06)
[2017-08-22 00:25] LABS: CREATINE KINASE MB FRACTION 5.7 ng/mL (0.5-3.6); TROPONIN I 0.05 ng/mL (0.00-0.04)
[2017-08-22] MEDS: DOCUSATE SODIUM 100MG CAPSULE PO PRN (00:29)
[2017-08-22] MEDS: IPRATROPIUM/ALBUTEROL 0.5-3(2.5)MG/3ML NEB HHN SCH ×6 (01:30→20:52)
[2017-08-22 04:00] VITALS: BP 127/71
[2017-08-22] MEDS: METHYLPREDNISOLONE SOD SUCC 125 MG/2 ML VIAL IV SCH ×3 (06:34→23:07)
[2017-08-22 08:00] VITALS: BP 113/62
[2017-08-22] MEDS: ENOXAPARIN 40MG/0.4ML SYR SUBCUT SCH (08:13)
[2017-08-22] MEDS: FAMOTIDINE 20MG/2ML VIAL IV SCH ×2 (08:13→20:04)
[2017-08-22] MEDS: ASPIRIN 325MG EC TABLET PO SCH (08:13)
[2017-08-22] MEDS: GUAIFENESIN/DM 600MG/30MG ER TAB 12HR PO SCH ×2 (08:13→20:04)
[2017-08-22] MEDS: LEVOFLOXACIN 500MG PREMIX 100 ML IV SCH (09:27)
[2017-08-22] MEDS: TAMSULOSIN HCL 0.4MG SR CAPSULE PO SCH (09:58)
[2017-08-22 12:00] VITALS: BP 109/53
[2017-08-22] MEDS: LIDOCAINE 5% PATCH TOP SCH (12:32)
[2017-08-22 15:12] LABS: BG BASE EXCESS 11.4 mmol/L (-2.0-2.0); BG CARBOXYHEMOGLOBIN 0.1 % (0.5-1.5); BG DEOXYHEMOGLOBIN 2.8 % (0.0-5.0); BG FRACTION INSPIRED OXYGEN 32; BG HCO3 ACT 36.9 mmol/L (22.0-26.0); BG METHEMOGLOBIN 0.4 % (0.0-1.5); BG OXYGEN SATURATION 97.2 % (92.0-98.5); BG OXYHEMOGLOBIN 96.7 % (94.0-97.0); BG PCO2 54.2 mmHg (35.0-45.0); BG PH 7.451 (7.350-7.450); BG PO2 90.4 mmHg (75.0-100.0); BG SAMPLE SITE RIGHT BRACHIAL; BG TOTAL HEMOGLOBIN 9.8 g/dL (12.0-18.0); BG VENT MODE NASAL CANNULA
[2017-08-22 16:00] VITALS: BP 120/55
[2017-08-22 20:00] VITALS: BP 116/65
[2017-08-22] MEDS ORDERED: IOHEXOL-350 100 ML BOTTLE ONE (20:44)
[2017-08-23] VITALS (7 sets, daily range): BP systolic 116–147; BP diastolic 63–74
[2017-08-23] MEDS: DILTIAZEM HCL 30MG TABLET PO SCH ×5 (00:20→23:32)
[2017-08-23] MEDS: ZOLPIDEM TARTRATE 5MG TABLET PO PRN ×2 (00:20→23:33)
[2017-08-23] MEDS: IPRATROPIUM/ALBUTEROL 0.5-3(2.5)MG/3ML NEB HHN SCH ×6 (00:34→20:34)
[2017-08-23] MEDS: METHYLPREDNISOLONE SOD SUCC 125 MG/2 ML VIAL IV SCH ×3 (06:58→20:59)
[2017-08-23] MEDS: MORPHINE SULFATE 2 MG/ML CPJ (NOT FOR IM USE) IV PRN ×3 (07:24→15:29)
[2017-08-23] MEDS: TAMSULOSIN HCL 0.4MG SR CAPSULE PO SCH (09:20)
[2017-08-23] MEDS: ASPIRIN 325MG EC TABLET PO SCH (09:20)
[2017-08-23] MEDS: FAMOTIDINE 20MG/2ML VIAL IV SCH ×2 (09:20→20:59)
[2017-08-23] MEDS: GUAIFENESIN/DM 600MG/30MG ER TAB 12HR PO SCH ×2 (09:20→20:59)
[2017-08-23] MEDS: ENOXAPARIN 40MG/0.4ML SYR SUBCUT SCH (09:21)
[2017-08-23] MEDS: LEVOFLOXACIN 500MG PREMIX 100 ML IV SCH (09:21)
[2017-08-23] MEDS: LIDOCAINE 5% PATCH TOP SCH (09:24)
[2017-08-23] MEDS: DOCUSATE SODIUM 100MG CAPSULE PO PRN ×2 (11:40→20:57)
[2017-08-23] MEDS: MORPHINE SULFATE 10 MG/ML CPJ IV PRN ×2 (19:35→23:32)
[2017-08-24] MEDS: IPRATROPIUM/ALBUTEROL 0.5-3(2.5)MG/3ML NEB HHN SCH ×3 (01:02→12:50)
[2017-08-24 08:00] VITALS: BP 147/84
[2017-08-24] MEDS: ASPIRIN 325MG EC TABLET PO SCH (09:03)
[2017-08-24] MEDS: LEVOFLOXACIN 500MG PREMIX 100 ML IV SCH (09:03)
[2017-08-24] MEDS: TAMSULOSIN HCL 0.4MG SR CAPSULE PO SCH (09:04)
[2017-08-24] MEDS: MORPHINE SULFATE 10 MG/ML CPJ IV PRN ×2 (09:04→13:13)
[2017-08-24] MEDS: FAMOTIDINE 20MG/2ML VIAL IV SCH (09:04)
[2017-08-24] MEDS: GUAIFENESIN/DM 600MG/30MG ER TAB 12HR PO SCH (09:04)
[2017-08-24] MEDS: LIDOCAINE 5% PATCH TOP SCH (09:05)
[2017-08-24] MEDS: ENOXAPARIN 40MG/0.4ML SYR SUBCUT SCH (09:05)
[2017-08-24 12:00] VITALS: BP 142/74
[2017-08-24 12:17] VITALS: BP 133/81
[2017-08-24 13:13] VITALS: BP 133/81
[2017-08-25] MEDS ORDERED: PREDNISONE 20MG TABLET PO SCH (09:00)
== END 2017-08-24 13:34 | DRG 291 ==
LOC: ER 06:24 → 8WST 07:47 → ENRESERV 11:37
PROVIDERS: ADMIT Internal Medicine; ATTEND Internal Medicine
DX: I11.0 Hypertensive heart disease with heart failure (principal); J96.00 Acute respiratory failure, unspecified whether with hypoxia or hypercapnia; J44.1 Chronic obstructive pulmonary disease with (acute) exacerbation; J84.9 Interstitial pulmonary disease, unspecified; I50.23 Acute on chronic systolic (congestive) heart failure; I42.9 Cardiomyopathy, unspecified; M48.02 Spinal stenosis, cervical region; D63.8 Anemia in other chronic diseases classified elsewhere; N40.0 Benign prostatic hyperplasia without lower urinary tract symptoms; F17.210 Nicotine dependence, cigarettes, uncomplicated; Z99.81 Dependence on supplemental oxygen
CPT/HCPCS: 36415; 36600; 71010; 71275; 72141; 80053; 82375; 82550; 82553; 82805; 83036; 83880; 84484; 85025; 85610; 93005; 93306; 93970; 94640; 94664; 96365; 96375; 96376; 99291; G0482; J1650; J1956; J2270; J2405; J2930; J3490; J7050; J7611; J7620; Q9967

== ENCOUNTER 2018-03-27 18:32 | Emergency (ER) | payer MEDICARE, MEDICAID ==
[~2018-03-27] VITALS: Ht 177.8 cm; Wt 80.0 kg
[2018-03-27 22:47] LABS: BASOPHILS % 1.4 % (0.0-2.0); EOSINOPHILS % 2.3 % (0.0-5.0); HEMATOCRIT. 32.8 % (42.0-52.0); HEMOGLOBIN. 10.8 g/dL (14.0-18.0); LYMPHOCYTES % 30.9 % (20.0-50.0); MEAN CORPUSCULAR HEMOGLOBIN 31.4 pg (28.0-32.0); MEAN PLATELET VOLUME 9.5 fl (7.4-10.4); MONOCYTES % 6.2 % (2.0-8.0); NEUTROPHILS % 59.2 % (40.0-76.0); PLATELET 240 x1000/uL (130-400); RED BLOOD CELL COUNT 3.45 mill/uL (4.7-6.1); RED CELL DISTRIBUTION WIDTH 13.5 % (11.6-14.6)
[2018-03-27 22:52] LABS: CHLORIDE 98 mEq/L (98-107)
[2018-03-27 22:56] LABS: ETHANOL BLOOD 175 mg/dL
[2018-03-28 01:13] VITALS: BP 113/64
== END 2018-03-28 01:14 | disposition home or self-care (01) ==
LOC: ER 18:44
DX: F10.129 Alcohol abuse with intoxication, unspecified (principal); I11.0 Hypertensive heart disease with heart failure; I50.9 Heart failure, unspecified; J44.9 Chronic obstructive pulmonary disease, unspecified; N40.0 Benign prostatic hyperplasia without lower urinary tract symptoms
CPT/HCPCS: 36415; 80053; 85025; 99284; G0482

== ENCOUNTER 2018-08-07 08:03 | Inpatient (IN) | payer MEDICARE, MEDICAID ==
[~2018-08-07] VITALS: Ht 170.2 cm; Wt 75.3 kg
[2018-08-07] VITALS (8 sets, daily range): BP systolic 116–152; BP diastolic 47–67
[2018-08-07] MEDS ORDERED: AMLO10TA80 MT (08:38)
[2018-08-07] MEDS ORDERED: IPRA3AMP31 IH (08:38)
[2018-08-07] MEDS ORDERED: GABA-531 MT (08:38)
[2018-08-07] MEDS ORDERED: ACET-2178 MT (08:38)
[2018-08-07] MEDS ORDERED: LIDO700A30 TP (08:38)
[2018-08-07] MEDS ORDERED: HYDR-4001 MT (08:38)
[2018-08-07] MEDS ORDERED: FAMO20TA8 MT (08:38)
[2018-08-07] MEDS ORDERED: CLOP75TA33 MT (08:38)
[2018-08-07] MEDS ORDERED: MU-V1TAB28 PO (08:38)
[2018-08-07] MEDS ORDERED: BISA5TAB10 PO (08:38)
[2018-08-07] MEDS ORDERED: CLON0.2T MT (08:38)
[2018-08-07] MEDS ORDERED: MONT10TA24 MT (08:38)
[2018-08-07] MEDS ORDERED: ASPI-1158 MT (08:38)
[2018-08-07] MEDS ORDERED: ONDA4TAB5 MT (08:38)
[2018-08-07] MEDS ORDERED: TEMA15CA MT (08:38)
[2018-08-07] MEDS ORDERED: DOCU250C69 MT (08:38)
[2018-08-07] MEDS ORDERED: TAMS-11 MT (08:38)
[2018-08-07] MEDS ORDERED: METO-396 MT (08:38)
[2018-08-07 08:59] LABS: BASOPHILS % 0.9 % (0.0-2.0); CHLORIDE 98 mEq/L (98-107); EOSINOPHILS % 2.8 % (0.0-5.0); LYMPHOCYTES % 21.6 % (20.0-50.0); MEAN CORPUSCULAR HEMOGLOBIN 24.1 pg (28.0-32.0); MEAN CORPUSCULAR VOLUME 79.6 fL (80.0-94.0); MEAN PLATELET VOLUME 8.5 fl (7.4-10.4); MONOCYTES % 13.6 % (2.0-8.0); NEUTROPHILS % 61.1 % (40.0-76.0); PLATELET 301 x1000/uL (130-400); RED BLOOD CELL COUNT 2.02 mill/uL (4.7-6.1)
[2018-08-07 09:06] LABS: HEMATOCRIT. 16.1 % (42.0-52.0); HEMOGLOBIN. 4.9 g/dL (14.0-18.0)
[2018-08-07 09:12] LABS: INR 1.1; PROTHROMBIN TIME 10.8 sec (9.1-11.1)
[2018-08-07] MEDS ORDERED: SODIUM CHLORIDE 0.9% 1,000 ML IV ONE (09:15)
[2018-08-07 09:29] LABS: PLATELET ESTIMATE NORMAL
[2018-08-07] MEDS ORDERED: HYDROCODONE/ACETAMINOPHEN 10/325MG TABLET PO ONE (09:30)
[2018-08-07] MEDS ORDERED: ACETAMINOPHEN 650MG/20.3ML UDC GT PRN ×2 (12:00→18:00)
[2018-08-07] MEDS ORDERED: ACETAMINOPHEN 650MG SUPP PR PRN ×2 (12:00→18:00)
[2018-08-07] MEDS ORDERED: CLONIDINE 0.1MG TABLET PO PRN (12:00)
[2018-08-07] MEDS ORDERED: DIPHENHYDRAMINE 50MG/ML VIAL IV PRN (12:00)
[2018-08-07] MEDS ORDERED: NA PHOS,M-B/NA PHOS,DI-BA ENEMA 118ML PR PRN (12:00)
[2018-08-07] MEDS ORDERED: ONDANSETRON HCL 4MG/2ML INJ IV PRN (12:00)
[2018-08-07] MEDS ORDERED: MAGNESIUM/ALUMINUM HYDROXIDE/SIMETHICONE 30ML UDC PO PRN ×2 (12:00→18:00)
[2018-08-07] MEDS: MULTIVITAMINS,THER W-MINERALS TABLET PO SCH (12:38)
[2018-08-07] MEDS: THIAMINE HCL 100MG TABLET PO SCH (12:38)
[2018-08-07] MEDS: IPRATROPIUM/ALBUTEROL 0.5-3(2.5)MG/3ML NEB INH SCH ×3 (14:08→21:20)
[2018-08-07] MEDS ORDERED: ACETAMINOPHEN 650MG/20.3ML UDC PO PRN (15:15)
[2018-08-07] MEDS: SODIUM CHLORIDE 0.9% INJ 3ML FLUSH IVF SCH ×2 (15:52→22:19)
[2018-08-07 16:45] LABS: CLARITY URINE CLEAR (CLEAR); COLOR URINE YELLOW (YELLOW); KETONES URINE NEGATIVE (NEGATIVE); LEUKOCYTE ESTERASE URINE NEGATIVE (NEGATIVE); NITRITE URINE NEGATIVE (NEGATIVE); OCCULT BLOOD URINE NEGATIVE (NEGATIVE); PROTEIN URINE NEGATIVE (NEGATIVE)
[2018-08-07] MEDS: HYDROCODONE/ACETAMINOPHEN 5/325MG TABLET PO PRN ×2 (18:06→22:36)
[2018-08-07 21:38] LABS: HEMATOCRIT 22.9 % (42.0-52.0); HEMOGLOBIN 7.3 g/dL (14.0-18.0)
[2018-08-08] VITALS (11 sets, daily range): BP systolic 129–152; BP diastolic 53–69
[2018-08-08] MEDS: IPRATROPIUM/ALBUTEROL 0.5-3(2.5)MG/3ML NEB INH SCH ×5 (01:34→21:02)
[2018-08-08] MEDS: HYDROCODONE/ACETAMINOPHEN 10/325MG TABLET PO PRN ×4 (03:10→21:11)
[2018-08-08] MEDS: SODIUM CHLORIDE 0.9% INJ 3ML FLUSH IVF SCH ×3 (05:45→21:13)
[2018-08-08 07:16] LABS: BASOPHILS % 0.6 % (0.0-2.0); EOSINOPHILS % 2.5 % (0.0-5.0); HEMOGLOBIN. 8.3 g/dL (14.0-18.0); LYMPHOCYTES % 19.4 % (20.0-50.0); MEAN CORPUSCULAR HEMOGLOBIN 26.8 pg (28.0-32.0); MEAN CORPUSCULAR VOLUME 80.7 fL (80.0-94.0); MEAN PLATELET VOLUME 8.5 fl (7.4-10.4); MONOCYTES % 14.6 % (2.0-8.0); NEUTROPHILS % 62.9 % (40.0-76.0); PLATELET 274 x1000/uL (130-400); RED CELL DISTRIBUTION WIDTH 18.6 % (11.6-14.6)
[2018-08-08 07:35] LABS: CHLORIDE 98 mEq/L (98-107)
[2018-08-08] MEDS: FOLIC ACID 1MG TABLET PO SCH (07:43)
[2018-08-08] MEDS: THIAMINE HCL 100MG TABLET PO SCH (07:43)
[2018-08-08] MEDS: MULTIVITAMINS,THER W-MINERALS TABLET PO SCH (07:43)
[2018-08-08] MEDS: ACETAMINOPHEN 325MG TABLET PO PRN ×2 (16:21→21:51)
[2018-08-08 19:21] LABS: TOTAL IRON BINDING CAPACITY 378 ug/dL (250-450)
[2018-08-08 19:38] LABS: FOLIC ACID (FOLATE) SERUM 10.2 ng/mL (>5.38)
[2018-08-08 20:55] LABS: HEMATOCRIT 26.2 % (42.0-52.0); HEMOGLOBIN 8.4 g/dL (14.0-18.0)
[2018-08-08] MEDS: PANTOPRAZOLE SODIUM 40 MG/VIAL IV SCH (21:00)
[2018-08-08] MEDS: ZOLPIDEM TARTRATE 5MG TABLET PO PRN (21:11)
[2018-08-08] MEDS: SODIUM CHLORIDE 0.9% 1,000 ML IV SCH (21:58)
[2018-08-08] MEDS: FERROUS SULFATE 325MG TABLET PO SCH (21:58)
[2018-08-08] MEDS ORDERED: IPRATROPIUM/ALBUTEROL 0.5-3(2.5)MG/3ML NEB HHN NR (22:00)
[2018-08-08 23:26] LABS: HEPATITIS B SURFACE ANTIGEN NEGATIVE
[2018-08-08 23:54] LABS: HEPATITIS B CORE AB IGM NEGATIVE
[2018-08-08 23:56] LABS: HEPATITIS A AB IGM NEGATIVE (NEGATIVE)
[2018-08-09] VITALS: BP 126/60
[2018-08-09] MEDS: CEFTRIAXONE 1 G PREMIX 50 ML IV SCH ×2 (00:03→21:00)
[2018-08-09 04:00] VITALS: BP 92/58
[2018-08-09] MEDS: SODIUM CHLORIDE 0.9% INJ 3ML FLUSH IVF SCH ×3 (06:00→21:01)
[2018-08-09] MEDS: IPRATROPIUM/ALBUTEROL 0.5-3(2.5)MG/3ML NEB INH SCH ×5 (06:14→20:31)
[2018-08-09 07:05] LABS: INR 1.2; PARTIAL THROMBOPLASTIN TIME 30.1 sec (23.4-31.0); PROTHROMBIN TIME 11.8 sec (9.1-11.1)
[2018-08-09 07:06] LABS: HEMATOCRIT. 25.5 % (42.0-52.0); HEMOGLOBIN. 8.2 g/dL (14.0-18.0); MEAN CORPUSCULAR HEMOGLOBIN 26.3 pg (28.0-32.0); MEAN CORPUSCULAR VOLUME 82.1 fL (80.0-94.0); MEAN PLATELET VOLUME 8.1 fl (7.4-10.4); PLATELET 235 x1000/uL (130-400); RED BLOOD CELL COUNT 3.11 mill/uL (4.7-6.1)
[2018-08-09 08:01] VITALS: BP 127/71
[2018-08-09 08:09] LABS: CHLORIDE 96 mEq/L (98-107)
[2018-08-09] MEDS: FERROUS SULFATE 325MG TABLET PO SCH (09:16)
[2018-08-09] MEDS: PANTOPRAZOLE SODIUM 40 MG/VIAL IV SCH ×2 (09:16→21:00)
[2018-08-09] MEDS: HYDROCODONE/ACETAMINOPHEN 5/325MG TABLET PO PRN (09:16)
[2018-08-09] MEDS: FOLIC ACID 1MG TABLET PO SCH (09:17)
[2018-08-09] MEDS: THIAMINE HCL 100MG TABLET PO SCH (09:17)
[2018-08-09] MEDS: MULTIVITAMINS,THER W-MINERALS TABLET PO SCH (09:17)
[2018-08-09] MEDS: HYDROCODONE/ACETAMINOPHEN 10/325MG TABLET PO PRN ×2 (09:30→20:00)
[2018-08-09 10:07] LABS: PLATELET ESTIMATE NORMAL
[2018-08-09 12:00] VITALS: BP 127/67
[2018-08-09] MEDS: IPRATROPIUM/ALBUTEROL 0.5-3(2.5)MG/3ML NEB INH PRN (12:52)
[2018-08-09] MEDS: SODIUM CHLORIDE 0.9% 1,000 ML IV SCH (13:16)
[2018-08-09] MEDS ORDERED: SODIUM CHLORIDE 0.9% 10ML VIAL ONE (14:47)
[2018-08-09 15:36] LABS: *AMPHETAMINES SCREEN URINE NEGATIVE (NEGATIVE); *BARBITURATES SCREEN URINE NEGATIVE (NEGATIVE)
[2018-08-09 15:37] LABS: *BENZODIAZEPINES SCREEN URINE NEGATIVE (NEGATIVE); *COCAINE SCREEN URINE NEGATIVE (NEGATIVE); CANNABINOID URINE SCREEN NEGATIVE (NEGATIVE)
[2018-08-09 15:39] LABS: METHADONE URINE SCREEN NEGATIVE (NEGATIVE); PHENCYCLIDINE URINE SCREEN NEGATIVE (NEGATIVE)
[2018-08-09 15:40] LABS: OPIATES URINE SCREEN PRESUMTIVE POSITIVE (NEGATIVE)
[2018-08-09 16:00] VITALS: BP 135/67
[2018-08-09] MEDS ORDERED: MIDAZOLAM HCL 5 MG/5 ML VIAL IV PRN (17:12)
[2018-08-09] MEDS ORDERED: MIDAZOLAM HCL 5 MG/5 ML VIAL ONE (17:13)
[2018-08-09] MEDS ORDERED: FENTANYL CITRATE/PF 50MCG/ML 2ML VIAL IV PRN (17:13)
[2018-08-09] MEDS ORDERED: FENTANYL CITRATE/PF 50MCG/ML 2ML VIAL ONE (17:13)
[2018-08-09 19:50] VITALS: BP 131/60
[2018-08-10] VITALS: BP 115/52
[2018-08-10] MEDS: IPRATROPIUM/ALBUTEROL 0.5-3(2.5)MG/3ML NEB INH SCH ×6 (02:05→21:09)
[2018-08-10] MEDS: SODIUM CHLORIDE 0.9% 1,000 ML IV SCH ×2 (02:44→21:13)
[2018-08-10] MEDS: HYDROCODONE/ACETAMINOPHEN 10/325MG TABLET PO PRN ×5 (02:45→21:40)
[2018-08-10 04:00] VITALS: BP 130/76
[2018-08-10] MEDS: SODIUM CHLORIDE 0.9% INJ 3ML FLUSH IVF SCH ×3 (06:02→21:05)
[2018-08-10 08:00] VITALS: BP 123/68
[2018-08-10] MEDS: MULTIVITAMINS,THER W-MINERALS TABLET PO SCH (08:36)
[2018-08-10] MEDS: THIAMINE HCL 100MG TABLET PO SCH (08:36)
[2018-08-10] MEDS: FERROUS SULFATE 325MG TABLET PO SCH (08:36)
[2018-08-10] MEDS: FOLIC ACID 1MG TABLET PO SCH (08:36)
[2018-08-10 12:00] VITALS: BP 127/68
[2018-08-10 16:00] VITALS: BP 116/69
[2018-08-10 20:00] VITALS: BP 151/59
[2018-08-10] MEDS ORDERED: IRON SUCROSE COMPLEX 100 MG/5 ML ML IV SCH (20:30)
[2018-08-10] MEDS: CEFTRIAXONE 1 G PREMIX 50 ML IV SCH (21:05)
[2018-08-10] MEDS ORDERED: SODIUM CHLORIDE 0.9% 1000ML BAG (SEPSIS BOLUS) IV ONE (22:45)
[2018-08-10] MEDS ORDERED: SODIUM CHLORIDE 0.9% 500ML IV NR (23:00)
[2018-08-10] MEDS: ZOLPIDEM TARTRATE 5MG TABLET PO PRN (23:08)
[2018-08-10] MEDS: AZITHROMYCIN 500 MG in DEXT 5% WATER 250 ML IV SCH (23:15)
[2018-08-11] VITALS: BP 116/57
[2018-08-11] MEDS ORDERED: ALBUTEROL (0.083%) 2.5MG/3ML NEB HHN SCH
[2018-08-11] MEDS: IPRATROPIUM/ALBUTEROL 0.5-3(2.5)MG/3ML NEB INH PRN ×3 (02:52→15:44)
[2018-08-11 04:00] VITALS: BP 116/62
[2018-08-11] MEDS: SODIUM CHLORIDE 0.9% INJ 3ML FLUSH IVF SCH ×3 (04:51→22:00)
[2018-08-11] MEDS: IPRATROPIUM BROMIDE (0.02%) 0.5MG/2.5ML NEB HHN SCH ×3 (07:50→20:41)
[2018-08-11 08:00] VITALS: BP 124/68
[2018-08-11] MEDS: MULTIVITAMINS,THER W-MINERALS TABLET PO SCH (08:24)
[2018-08-11] MEDS: FOLIC ACID 1MG TABLET PO SCH (08:24)
[2018-08-11] MEDS: FERROUS SULFATE 325MG TABLET PO SCH (08:24)
[2018-08-11] MEDS: THIAMINE HCL 100MG TABLET PO SCH (08:24)
[2018-08-11] MEDS: HYDROCODONE/ACETAMINOPHEN 10/325MG TABLET PO PRN ×4 (08:28→22:01)
[2018-08-11] MEDS ORDERED: AZIT500T3 MT (10:50)
[2018-08-11] MEDS ORDERED: CEFT1VIA15 IV (10:51)
[2018-08-11] MEDS ORDERED: IPRA3AMP9 INH (10:53)
[2018-08-11] MEDS ORDERED: FERR236T3 MT (10:55)
[2018-08-11 12:00] VITALS: BP 131/77
[2018-08-11 12:46] LABS: HEMATOCRIT. 26.6 % (42.0-52.0); HEMOGLOBIN. 8.1 g/dL (14.0-18.0); MEAN CORPUSCULAR HEMOGLOBIN 25.5 pg (28.0-32.0); MEAN CORPUSCULAR VOLUME 83.6 fL (80.0-94.0); MEAN PLATELET VOLUME 8.7 fl (7.4-10.4); PLATELET 195 x1000/uL (130-400); RED BLOOD CELL COUNT 3.18 mill/uL (4.7-6.1); RED CELL DISTRIBUTION WIDTH 20.8 % (11.6-14.6)
[2018-08-11 12:51] LABS: CHLORIDE 101 mEq/L (98-107)
[2018-08-11] MEDS: SODIUM CHLORIDE 0.9% 1,000 ML IV SCH (12:55)
[2018-08-11 13:13] LABS: PLATELET ESTIMATE NORMAL
[2018-08-11 16:00] VITALS: BP 111/60
[2018-08-11 20:00] VITALS: BP 135/67
[2018-08-11] MEDS: CEFTRIAXONE 1 G PREMIX 50 ML IV SCH (20:13)
[2018-08-11] MEDS: AZITHROMYCIN 500 MG in DEXT 5% WATER 250 ML IV SCH (20:15)
[2018-08-11] MEDS: ZOLPIDEM TARTRATE 5MG TABLET PO PRN (23:55)
[2018-08-12] VITALS (7 sets, daily range): BP systolic 129–144; BP diastolic 65–84
[2018-08-12] MEDS: IPRATROPIUM/ALBUTEROL 0.5-3(2.5)MG/3ML NEB INH PRN ×4 (00:27→16:23)
[2018-08-12] MEDS: IPRATROPIUM BROMIDE (0.02%) 0.5MG/2.5ML NEB HHN SCH ×3 (01:30→20:11)
[2018-08-12] MEDS: SODIUM CHLORIDE 0.9% 1,000 ML IV SCH (05:49)
[2018-08-12] MEDS: SODIUM CHLORIDE 0.9% INJ 3ML FLUSH IVF SCH ×2 (05:51→14:42)
[2018-08-12] MEDS: FERROUS SULFATE 325MG TABLET PO SCH (08:52)
[2018-08-12] MEDS: THIAMINE HCL 100MG TABLET PO SCH (08:52)
[2018-08-12] MEDS: MULTIVITAMINS,THER W-MINERALS TABLET PO SCH (08:52)
[2018-08-12] MEDS: HYDROCODONE/ACETAMINOPHEN 10/325MG TABLET PO PRN ×3 (08:53→17:57)
[2018-08-12] MEDS: FOLIC ACID 1MG TABLET PO SCH (08:53)
[2018-08-12 13:12] LABS: BASOPHILS % 0.6 % (0.0-2.0); EOSINOPHILS % 1.3 % (0.0-5.0); HEMATOCRIT. 25.5 % (42.0-52.0); LYMPHOCYTES % 11.4 % (20.0-50.0); MEAN CORPUSCULAR HEMOGLOBIN 26.2 pg (28.0-32.0); MEAN CORPUSCULAR VOLUME 83.8 fL (80.0-94.0); MEAN PLATELET VOLUME 8.8 fl (7.4-10.4); MONOCYTES % 11.5 % (2.0-8.0); NEUTROPHILS % 75.2 % (40.0-76.0); PLATELET 181 x1000/uL (130-400); RED BLOOD CELL COUNT 3.05 mill/uL (4.7-6.1); RED CELL DISTRIBUTION WIDTH 20.1 % (11.6-14.6)
[2018-08-12 14:05] LABS: CHLORIDE 99 mEq/L (98-107)
[2018-08-12] MEDS: CEFTRIAXONE 1 G PREMIX 50 ML IV SCH (21:36)
[2018-08-12] MEDS: AZITHROMYCIN 500 MG in DEXT 5% WATER 250 ML IV SCH (21:36)
== END 2018-08-12 23:30 | DRG 391 ==
LOC: ER 08:03 → 8WST 09:09 → ENRESERV 09:49 → ER 11:33
PROVIDERS: ADMIT Family Medicine; ATTEND Family Medicine
PROC: 30233N1 Transfusion of Nonautologous Red Blood Cells into Peripheral Vein, Percutaneous Approach (ICD-10-PCS; principal; 2018-08-07)
PROC: 0DB68ZX Excision of Stomach, Via Natural or Artificial Opening Endoscopic, Diagnostic (ICD-10-PCS; 2018-08-09)
DX: K29.70 Gastritis, unspecified, without bleeding (principal); G82.50 Quadriplegia, unspecified; D62 Acute posthemorrhagic anemia; N40.0 Benign prostatic hyperplasia without lower urinary tract symptoms; Z86.73 Personal history of transient ischemic attack (TIA), and cerebral infarction without residual deficits; D50.9 Iron deficiency anemia, unspecified; G89.29 Other chronic pain; I11.0 Hypertensive heart disease with heart failure; I50.9 Heart failure, unspecified; M48.02 Spinal stenosis, cervical region; J44.9 Chronic obstructive pulmonary disease, unspecified; K22.2 Esophageal obstruction; M19.90 Unspecified osteoarthritis, unspecified site; K44.9 Diaphragmatic hernia without obstruction or gangrene; Z98.1 Arthrodesis status; Z86.718 Personal history of other venous thrombosis and embolism; Z99.3 Dependence on wheelchair; Z99.81 Dependence on supplemental oxygen; Z79.899 Other long term (current) drug therapy; Z79.82 Long term (current) use of aspirin
CPT/HCPCS: 36415; 71045; 74018; 74176; 80053; 80305; 81003; 82270; 82607; 82728; 82746; 83540; 83550; 83605; 83690; 85014; 85018; 85025; 85610; 85730; 86705; 86709; 86803; 86850; 86900; 86920; 87040; 87086; 87340; 88305; 88313; 93970; 94640; 94667; 96360; 97162; 99285; A4216; C9113; J0456; J0696; J2250; J3010; J7030; J7040; J7050; J7060; J7620; P9016

== ENCOUNTER 2018-09-26 13:42 | Inpatient (IN) | payer MEDICARE, MEDICAID ==
[~2018-09-26] VITALS: Ht 170.2 cm; Wt 80.3 kg
[2018-09-26] VITALS (13 sets, daily range): BP systolic 93–136; BP diastolic 12–81
[~2018-09-26 13:42] MED LIST changes: +ACET-2178 MT; -ALLO100T PO; +AMLO10TA80 MT; +ASPI-1158 MT; +AZIT500T3 MT; -BACL-141 PO; +BISA5TAB10 PO; +CEFT1VIA15 IV; +CLON0.2T MT; +CLOP75TA33 MT; -DOCU-150 PO; +DOCU250C69 MT; -DULO60CA44 PO; +FAMO20TA8 MT; +FERR236T3 MT; -FOLI-43 PO; +GABA-531 MT; -GABA-531 PO; +HYDR-4001 MT; +IPRA3AMP31 IH; +IPRA3AMP9 INH; +LIDO700A30 TP; -MELA3TAB PO; +METO-396 MT; +MONT10TA24 MT; +MU-V1TAB28 PO; -MULT-1146 PO; +ONDA4TAB5 MT; +TAMS-11 MT; -TAMS-11 PO; +TEMA15CA MT
[2018-09-26] MEDS ORDERED: SODIUM CHLORIDE 0.9% 1,000 ML IV ONE (14:29)
[2018-09-26 14:55] LABS: BG BASE EXCESS 8.4 mmol/L (-2.0-2.0); BG CARBOXYHEMOGLOBIN 1.5 % (0.5-1.5); BG DEOXYHEMOGLOBIN 7.4 % (0.0-5.0); BG HCO3 ACT 40.9 mmol/L (22.0-26.0); BG METHEMOGLOBIN 0.1 % (0.0-1.5); BG OXYGEN SATURATION 92.5 % (92.0-98.5); BG PCO2 135.3 mmHg (35.0-45.0); BG PH 7.098 (7.350-7.450); BG PO2 79.5 mmHg (75.0-100.0); BG SAMPLE SITE RIGHT RADIAL; BG TOTAL HEMOGLOBIN 9.5 g/dL (12.0-18.0); BG VENT MODE NASAL CANNULA
[2018-09-26 15:12] LABS: BASOPHILS % 0.6 % (0.0-2.0); EOSINOPHILS % 0.4 % (0.0-5.0); HEMATOCRIT. 27.9 % (42.0-52.0); HEMOGLOBIN. 8.4 g/dL (14.0-18.0); LYMPHOCYTES % 12.3 % (20.0-50.0); MEAN CORPUSCULAR HEMOGLOBIN 26.5 pg (28.0-32.0); MEAN CORPUSCULAR VOLUME 87.6 fL (80.0-94.0); MEAN PLATELET VOLUME 8.3 fl (7.4-10.4); MONOCYTES % 7.8 % (2.0-8.0); NEUTROPHILS % 78.9 % (40.0-76.0); PLATELET 522 x1000/uL (130-400); RED BLOOD CELL COUNT 3.18 mill/uL (4.7-6.1); RED CELL DISTRIBUTION WIDTH 21.7 % (11.6-14.6)
[2018-09-26 15:16] LABS: CHLORIDE 99 mEq/L (98-107)
[2018-09-26 15:18] LABS: INR 1.1; PROTHROMBIN TIME 10.7 sec (9.1-11.1)
[2018-09-26 15:23] LABS: ETHANOL BLOOD 28 mg/dL
[2018-09-26] MEDS ORDERED: SODIUM BICARBONATE 8.4% 1 MEQ/ML 50ML SYR IV ONE (16:15)
[2018-09-26] MEDS ORDERED: NITROGLYCERIN 0.4MG TABLET SL SL PRN (17:00)
[2018-09-26] MEDS ORDERED: IPRATROPIUM/ALBUTEROL 0.5-3(2.5)MG/3ML NEB HHN SCH (17:00)
[2018-09-26] MEDS ORDERED: DOCUSATE SODIUM 100MG CAPSULE PO PRN (17:00)
[2018-09-26] MEDS ORDERED: IPRATROPIUM/ALBUTEROL 0.5-3(2.5)MG/3ML NEB INH PRN (17:00)
[2018-09-26] MEDS ORDERED: NA PHOS,M-B/NA PHOS,DI-BA ENEMA 118ML PR PRN (17:00)
[2018-09-26] MEDS ORDERED: GUAIFENESIN 200MG/10ML SUGAR FREE UDC PO PRN (17:00)
[2018-09-26] MEDS ORDERED: ONDANSETRON HCL 4MG/2ML INJ IV PRN (17:00)
[2018-09-26] MEDS ORDERED: MAGNESIUM/ALUMINUM HYDROXIDE/SIMETHICONE 30ML UDC PO PRN (17:00)
[2018-09-26 17:32] LABS: BG BASE EXCESS 12.2 mmol/L (-2.0-2.0); BG BILEVEL POS AIRWAY PRESSURE 18/5; BG CARBOXYHEMOGLOBIN 1.6 % (0.5-1.5); BG DEOXYHEMOGLOBIN 2.1 % (0.0-5.0); BG FRACTION INSPIRED OXYGEN 50; BG HCO3 ACT 43.9 mmol/L (22.0-26.0); BG METHEMOGLOBIN 0.2 % (0.0-1.5); BG OXYGEN SATURATION 97.9 % (92.0-98.5); BG OXYHEMOGLOBIN 96.1 % (94.0-97.0); BG PCO2 127.1 mmHg (35.0-45.0); BG PH 7.156 (7.350-7.450); BG PO2 110.3 mmHg (75.0-100.0); BG SAMPLE SITE RIGHT RADIAL; BG TOTAL HEMOGLOBIN 9.2 g/dL (12.0-18.0); BG VENT MODE MASK - BIPAP; BG VENT RATE 16 set
[2018-09-26] MEDS ORDERED: SUCCINYLCHOLINE CHLORIDE 200MG/10ML IV ONE ×2 (18:00→21:04)
[2018-09-26] MEDS ORDERED: ETOMIDATE 2MG/ML 10ML VIAL IV ONE ×2 (18:00→21:04)
[2018-09-26] MEDS ORDERED: PROPOFOL 10MG/ML 100ML 100 ML IV SCH (18:30)
[2018-09-26 19:02] LABS: BG CARBOXYHEMOGLOBIN 1.5 % (0.5-1.5); BG DEOXYHEMOGLOBIN 1.8 % (0.0-5.0); BG FRACTION INSPIRED OXYGEN 50; BG HCO3 ACT 52.5 mmol/L (22.0-26.0); BG METHEMOGLOBIN 0.4 % (0.0-1.5); BG OXYGEN SATURATION 98.2 % (92.0-98.5); BG OXYHEMOGLOBIN 96.3 % (94.0-97.0); BG PH 7.123 (7.350-7.450); BG PO2 126.3 mmHg (75.0-100.0); BG SAMPLE SITE RIGHT RADIAL; BG TIDAL VOLUME(mL) 500 mL; BG TOTAL HEMOGLOBIN 9.3 g/dL (12.0-18.0); BG VENT MODE VENT - A/C; BG VENT RATE 14 set
[2018-09-26] MEDS ORDERED: NOREPINEPHRINE 4 MG in DEXT 5% WATER 246 ML IV ONE (20:00)
[2018-09-26] MEDS ORDERED: NOREPINEPHRINE 4MG/250ML PMX 250 ML IV ONE ×2 (20:00)
[2018-09-26 20:54] LABS: TOTAL IRON BINDING CAPACITY 430 ug/dL (250-450)
[2018-09-26] MEDS ORDERED: NOREPINEPHRINE 4 MG in DEXT 5% WATER 246 ML IV PRN (21:30)
[2018-09-26] MEDS ORDERED: PROPOFOL 10MG/ML 100ML 100 ML IV PRN (21:45)
[2018-09-26] MEDS ORDERED: IPRATROPIUM/ALBUTEROL 0.5-3(2.5)MG/3ML NEB HHN PRN (21:45)
[2018-09-26] MEDS ORDERED: MVI, ADULT NO.1 10 ML, FOLIC ACID 1 MG, THIAMINE HCL 100 MG in SODIUM CHLORIDE 0.9% 1,0... IV SCH ×4 (22:00)
[2018-09-26] MEDS: PIPERACILLIN/TAZ 3.375G PREMIX 50 ML IV SCH (22:25)
[2018-09-26] MEDS: ASCORBIC ACID 500 MG TABLET PO SCH (22:26)
[2018-09-26] MEDS: METHYLPREDNISOLONE SOD SUCC 125 MG/2 ML VIAL IV SCH (22:26)
[2018-09-26] MEDS: GUAIFENESIN/DM 600MG/30MG ER TAB 12HR PO SCH (22:26)
[2018-09-26] MEDS: SODIUM POLYSTYRENE SULFONATE 15 G/60 ML BOT PO NR (22:26)
[2018-09-26] MEDS: FAMOTIDINE 20MG TABLET PO SCH (22:26)
[2018-09-26 22:54] LABS: CREATINE KINASE 92 IU/L (39-308)
[2018-09-26 22:55] LABS: CREATINE KINASE MB FRACTION 2.4 ng/mL (0.5-3.6)
[2018-09-26] MEDS ORDERED: ENOXAPARIN 40MG/0.4ML SYR SUBCUT SCH (23:00)
[2018-09-26] MEDS: IPRATROPIUM/ALBUTEROL 0.5-3(2.5)MG/3ML NEB HHN SCH (23:50)
[2018-09-27] VITALS (83 sets, daily range): BP systolic 103–166; BP diastolic 54–93
[2018-09-27] MEDS ORDERED: IPRATROPIUM/ALBUTEROL 0.5-3(2.5)MG/3ML NEB INH SCH
[2018-09-27] MEDS ORDERED: VANCOMYCIN 1,750 MG in DEXT 5% WATER 500 ML IV NR ×2
[2018-09-27] MEDS ORDERED: THIA100T13 PO (02:27)
[2018-09-27] MEDS ORDERED: GUAI600T26 PO (02:27)
[2018-09-27] MEDS ORDERED: MAG30ORA PO (02:27)
[2018-09-27] MEDS ORDERED: FOLI-43 PO (02:27)
[2018-09-27] MEDS ORDERED: SEREDK ORI (02:27)
[2018-09-27] MEDS ORDERED: DIPH25TA24 PO (02:27)
[2018-09-27] MEDS: IPRATROPIUM/ALBUTEROL 0.5-3(2.5)MG/3ML NEB HHN SCH ×6 (04:12→23:50)
[2018-09-27 04:58] LABS: HEMATOCRIT. 24.6 % (42.0-52.0); HEMOGLOBIN. 7.8 g/dL (14.0-18.0); MEAN CORPUSCULAR HEMOGLOBIN 26.8 pg (28.0-32.0); MEAN CORPUSCULAR VOLUME 84.8 fL (80.0-94.0); MEAN PLATELET VOLUME 8.7 fl (7.4-10.4); PLATELET 408 x1000/uL (130-400); RED CELL DISTRIBUTION WIDTH 21.7 % (11.6-14.6)
[2018-09-27] MEDS: METHYLPREDNISOLONE SOD SUCC 125 MG/2 ML VIAL IV SCH ×3 (05:48→21:08)
[2018-09-27] MEDS: PIPERACILLIN/TAZ 3.375G PREMIX 50 ML IV SCH ×4 (05:48→23:22)
[2018-09-27 06:05] LABS: CHLORIDE 100 mEq/L (98-107)
[2018-09-27 06:15] LABS: CREATINE KINASE 70 IU/L (39-308)
[2018-09-27 06:17] LABS: CREATINE KINASE MB FRACTION 1.1 ng/mL (0.5-3.6)
[2018-09-27 06:50] LABS: PLATELET ESTIMATE SLIGHTLY INCREASED
[2018-09-27] MEDS: DEXT 5%/LACTATED RINGERS 1,000 ML IV SCH ×2 (06:58→20:03)
[2018-09-27 07:19] LABS: BG BASE EXCESS 7.9 mmol/L (-2.0-2.0); BG CARBOXYHEMOGLOBIN 1.2 % (0.5-1.5); BG DEOXYHEMOGLOBIN 0.2 % (0.0-5.0); BG HCO3 ACT 31.7 mmol/L (22.0-26.0); BG METHEMOGLOBIN 0.3 % (0.0-1.5); BG OXYGEN SATURATION 99.8 % (92.0-98.5); BG OXYHEMOGLOBIN 98.3 % (94.0-97.0); BG PCO2 40.8 mmHg (35.0-45.0); BG PH 7.508 (7.350-7.450); BG SAMPLE SITE RIGHT RADIAL; BG TIDAL VOLUME(mL) 500 mL; BG TOTAL HEMOGLOBIN 8.2 g/dL (12.0-18.0); BG VENT MODE VENT - A/C; BG VENT RATE 22 set
[2018-09-27] MEDS: ASPIRIN 325MG EC TABLET PO SCH (09:39)
[2018-09-27] MEDS: ZINC SULFATE 220 MG ( 50 ) CAPSULE PO SCH (09:39)
[2018-09-27] MEDS: GUAIFENESIN/DM 600MG/30MG ER TAB 12HR PO SCH ×2 (09:39→23:07)
[2018-09-27] MEDS: MULTIVITAMINS,THER W-MINERALS TABLET PO SCH (09:40)
[2018-09-27] MEDS: FOLIC ACID 1MG TABLET PO SCH (09:40)
[2018-09-27] MEDS: THIAMINE HCL 100MG TABLET PO SCH (09:40)
[2018-09-27] MEDS: CLOPIDOGREL 75MG TABLET PO SCH (09:40)
[2018-09-27] MEDS: ASCORBIC ACID 500 MG TABLET PO SCH ×2 (09:40→21:09)
[2018-09-27] MEDS: FAMOTIDINE 20MG TABLET PO SCH ×2 (09:40→21:08)
[2018-09-27] MEDS: MORPHINE SULFATE 4 MG/ML CPJ (NOT FOR IM USE) IV PRN (09:49)
[2018-09-27] MEDS: VANCOMYCIN 1 G PREMIX 200 ML IV SCH ×2 (12:00→23:22)
[2018-09-27] MEDS: PROPOFOL 10MG/ML 100ML 100 ML IV PRN ×2 (16:42→21:32)
[2018-09-27] MEDS ORDERED: ENOXAPARIN 40MG/0.4ML SYR SUBCUT SCH (21:00)
[2018-09-27] MEDS: SODIUM POLYSTYRENE SULFONATE 15 G/60 ML BOT PO NR (23:07)
[2018-09-27] MEDS: ENOXAPARIN 40MG/0.4ML SYR SUBCUT SCH (23:14)
[2018-09-28] VITALS (27 sets, daily range): BP systolic 126–159; BP diastolic 57–76
[2018-09-28] MEDS: PROPOFOL 10MG/ML 100ML 100 ML IV PRN ×6 (02:41→23:13)
[2018-09-28] MEDS: IPRATROPIUM/ALBUTEROL 0.5-3(2.5)MG/3ML NEB HHN SCH ×6 (03:19→23:37)
[2018-09-28 05:08] LABS: CHLORIDE 101 mEq/L (98-107)
[2018-09-28 05:11] LABS: MEAN CORPUSCULAR HEMOGLOBIN 26.7 pg (28.0-32.0); MEAN CORPUSCULAR VOLUME 83.9 fL (80.0-94.0); MEAN PLATELET VOLUME 8.7 fl (7.4-10.4); PLATELET 399 x1000/uL (130-400); RED BLOOD CELL COUNT 2.62 mill/uL (4.7-6.1)
[2018-09-28] MEDS: PIPERACILLIN/TAZ 3.375G PREMIX 50 ML IV SCH ×3 (05:44→17:26)
[2018-09-28] MEDS: METHYLPREDNISOLONE SOD SUCC 125 MG/2 ML VIAL IV SCH (06:57)
[2018-09-28 08:01] LABS: BG BASE EXCESS 10.5 mmol/L (-2.0-2.0); BG CARBOXYHEMOGLOBIN 1.8 % (0.5-1.5); BG DEOXYHEMOGLOBIN 5.9 % (0.0-5.0); BG FRACTION INSPIRED OXYGEN 30; BG HCO3 ACT 35.1 mmol/L (22.0-26.0); BG METHEMOGLOBIN 0.6 % (0.0-1.5); BG OXYHEMOGLOBIN 91.7 % (94.0-97.0); BG PCO2 48.7 mmHg (35.0-45.0); BG PH 7.476 (7.350-7.450); BG PO2 64.6 mmHg (75.0-100.0); BG SAMPLE SITE RIGHT RADIAL; BG TIDAL VOLUME(mL) 500 mL; BG TOTAL HEMOGLOBIN 7.3 g/dL (12.0-18.0); BG VENT MODE VENT - A/C; BG VENT RATE 16 set
[2018-09-28] MEDS: FAMOTIDINE 20MG TABLET PO SCH ×2 (08:37→21:22)
[2018-09-28] MEDS: THIAMINE HCL 100MG TABLET PO SCH (08:37)
[2018-09-28] MEDS: ZINC SULFATE 220 MG ( 50 ) CAPSULE PO SCH (08:37)
[2018-09-28] MEDS: FOLIC ACID 1MG TABLET PO SCH (08:37)
[2018-09-28] MEDS: ASCORBIC ACID 500 MG TABLET PO SCH ×2 (08:37→21:22)
[2018-09-28] MEDS: ASPIRIN 325MG EC TABLET PO SCH (08:37)
[2018-09-28] MEDS: CLOPIDOGREL 75MG TABLET PO SCH (08:37)
[2018-09-28] MEDS: ACETAMINOPHEN 325MG TABLET PO PRN (08:38)
[2018-09-28] MEDS: MULTIVITAMINS,THER W-MINERALS TABLET PO SCH (08:46)
[2018-09-28] MEDS: DEXT 5%/LACTATED RINGERS 1,000 ML IV SCH ×2 (09:04→21:22)
[2018-09-28] MEDS: GUAIFENESIN/DM 600MG/30MG ER TAB 12HR PO SCH ×2 (09:04→21:24)
[2018-09-28] MEDS: VANCOMYCIN 1500MG in DEXTROSE 5% WATER 250ML IV SCH (11:52)
[2018-09-28 12:19] LABS: PLATELET ESTIMATE NORMAL
[2018-09-28 13:22] LABS: MEAN CORPUSCULAR HEMOGLOBIN 26.3 pg (28.0-32.0); MEAN CORPUSCULAR VOLUME 84.7 fL (80.0-94.0); MEAN PLATELET VOLUME 8.5 fl (7.4-10.4); PLATELET 390 x1000/uL (130-400); RED BLOOD CELL COUNT 2.52 mill/uL (4.7-6.1); RED CELL DISTRIBUTION WIDTH 22.1 % (11.6-14.6)
[2018-09-28 13:34] LABS: HEMATOCRIT. 21.3 % (42.0-52.0); HEMOGLOBIN. 6.6 g/dL (14.0-18.0)
[2018-09-28 15:27] LABS: PLATELET ESTIMATE NORMAL
[2018-09-28] MEDS: METHYLPREDNISOLONE SOD SUCC 40 MG/ML VIAL IV SCH (21:22)
[2018-09-28] MEDS: ENOXAPARIN 40MG/0.4ML SYR SUBCUT SCH (21:22)
[2018-09-29] VITALS (53 sets, daily range): BP systolic 119–162; BP diastolic 58–82
[2018-09-29] MEDS: VANCOMYCIN 1500MG in DEXTROSE 5% WATER 250ML IV SCH ×2 (00:21→11:58)
[2018-09-29] MEDS: PIPERACILLIN/TAZ 3.375G PREMIX 50 ML IV SCH ×5 (00:21→23:09)
[2018-09-29] MEDS: PROPOFOL 10MG/ML 100ML 100 ML IV PRN ×5 (03:13→21:43)
[2018-09-29] MEDS: IPRATROPIUM/ALBUTEROL 0.5-3(2.5)MG/3ML NEB HHN SCH ×5 (03:46→20:17)
[2018-09-29 08:05] LABS: BG BASE EXCESS -1.9 mmol/L (-2.0-2.0); BG CARBOXYHEMOGLOBIN 0.6 % (0.5-1.5); BG DEOXYHEMOGLOBIN 1.2 % (0.0-5.0); BG FRACTION INSPIRED OXYGEN 40; BG HCO3 ACT 21.8 mmol/L (22.0-26.0); BG METHEMOGLOBIN 0.4 % (0.0-1.5); BG OXYGEN SATURATION 98.8 % (92.0-98.5); BG OXYHEMOGLOBIN 97.8 % (94.0-97.0); BG PCO2 33.3 mmHg (35.0-45.0); BG PH 7.434 (7.350-7.450); BG PO2 137.9 mmHg (75.0-100.0); BG SAMPLE SITE RIGHT RADIAL; BG VENT MODE MASK - AEROSOL
[2018-09-29] MEDS: FOLIC ACID 1MG TABLET PO SCH (08:43)
[2018-09-29] MEDS: THIAMINE HCL 100MG TABLET PO SCH (08:43)
[2018-09-29] MEDS: CLOPIDOGREL 75MG TABLET PO SCH (08:43)
[2018-09-29] MEDS: MULTIVITAMINS,THER W-MINERALS TABLET PO SCH (08:43)
[2018-09-29] MEDS: ZINC SULFATE 220 MG ( 50 ) CAPSULE PO SCH (08:43)
[2018-09-29] MEDS: METHYLPREDNISOLONE SOD SUCC 40 MG/ML VIAL IV SCH ×2 (08:43→21:16)
[2018-09-29] MEDS: GUAIFENESIN/DM 600MG/30MG ER TAB 12HR PO SCH ×2 (08:43→21:16)
[2018-09-29] MEDS: ASPIRIN 325MG EC TABLET PO SCH (08:43)
[2018-09-29] MEDS: FAMOTIDINE 20MG TABLET PO SCH ×2 (08:43→21:16)
[2018-09-29] MEDS: ASCORBIC ACID 500 MG TABLET PO SCH ×2 (08:43→21:17)
[2018-09-29 09:11] LABS: BG BASE EXCESS 8.3 mmol/L (-2.0-2.0); BG CARBOXYHEMOGLOBIN 1.2 % (0.5-1.5); BG DEOXYHEMOGLOBIN 3.8 % (0.0-5.0); BG FRACTION INSPIRED OXYGEN 30; BG HCO3 ACT 34.2 mmol/L (22.0-26.0); BG METHEMOGLOBIN 0.2 % (0.0-1.5); BG OXYGEN SATURATION 96.1 % (92.0-98.5); BG OXYHEMOGLOBIN 94.8 % (94.0-97.0); BG PCO2 55.8 mmHg (35.0-45.0); BG PH 7.405 (7.350-7.450); BG PO2 82.5 mmHg (75.0-100.0); BG SAMPLE SITE RIGHT RADIAL; BG TIDAL VOLUME(mL) 500 mL; BG TOTAL HEMOGLOBIN 8.8 g/dL (12.0-18.0); BG VENT MODE VENT - A/C; BG VENT RATE 12 set
[2018-09-29 11:54] LABS: HEMATOCRIT. 26.2 % (42.0-52.0); HEMOGLOBIN. 8.2 g/dL (14.0-18.0); MEAN CORPUSCULAR HEMOGLOBIN 27.1 pg (28.0-32.0); MEAN CORPUSCULAR VOLUME 86.8 fL (80.0-94.0); MEAN PLATELET VOLUME 8.8 fl (7.4-10.4); PLATELET 424 x1000/uL (130-400); RED BLOOD CELL COUNT 3.01 mill/uL (4.7-6.1); RED CELL DISTRIBUTION WIDTH 20.3 % (11.6-14.6)
[2018-09-29 11:58] LABS: CHLORIDE 106 mEq/L (98-107)
[2018-09-29] MEDS: DEXT 5%/LACTATED RINGERS 1,000 ML IV SCH (12:17)
[2018-09-29 12:41] LABS: PLATELET ESTIMATE SLIGHTLY INCREASED
[2018-09-29 21:18] LABS: FOLIC ACID (FOLATE) SERUM > 20.00 ng/mL (>5.38)
[2018-09-29 21:22] LABS: VITAMIN B12 SERUM 437 pg/mL (211-911)
[2018-09-30] VITALS (82 sets, daily range): BP systolic 99–182; BP diastolic 53–96
[2018-09-30] MEDS: IPRATROPIUM/ALBUTEROL 0.5-3(2.5)MG/3ML NEB HHN SCH ×6 (00:12→20:10)
[2018-09-30] MEDS: VANCOMYCIN 1500MG in DEXTROSE 5% WATER 250ML IV SCH ×2 (00:19→12:29)
[2018-09-30] MEDS: PROPOFOL 10MG/ML 100ML 100 ML IV PRN ×2 (01:59→05:35)
[2018-09-30] MEDS: DEXT 5%/LACTATED RINGERS 1,000 ML IV SCH ×2 (03:16→15:13)
[2018-09-30] MEDS: PIPERACILLIN/TAZ 3.375G PREMIX 50 ML IV SCH ×4 (05:29→23:55)
[2018-09-30 05:34] LABS: HEMATOCRIT. 25.4 % (42.0-52.0); HEMOGLOBIN. 7.8 g/dL (14.0-18.0); MEAN CORPUSCULAR HEMOGLOBIN 26.8 pg (28.0-32.0); MEAN CORPUSCULAR VOLUME 86.9 fL (80.0-94.0); MEAN PLATELET VOLUME 9.1 fl (7.4-10.4); PLATELET 407 x1000/uL (130-400); RED BLOOD CELL COUNT 2.92 mill/uL (4.7-6.1); RED CELL DISTRIBUTION WIDTH 20.5 % (11.6-14.6)
[2018-09-30 05:37] LABS: CHLORIDE 103 mEq/L (98-107)
[2018-09-30] MEDS: MORPHINE SULFATE 4 MG/ML CPJ (NOT FOR IM USE) IV PRN ×4 (05:43→20:06)
[2018-09-30 08:37] LABS: BG BASE EXCESS 12.6 mmol/L (-2.0-2.0); BG CARBOXYHEMOGLOBIN 1.2 % (0.5-1.5); BG DEOXYHEMOGLOBIN 4.8 % (0.0-5.0); BG FRACTION INSPIRED OXYGEN 30; BG HCO3 ACT 38.8 mmol/L (22.0-26.0); BG METHEMOGLOBIN 0.2 % (0.0-1.5); BG OXYGEN SATURATION 95.1 % (92.0-98.5); BG OXYHEMOGLOBIN 93.8 % (94.0-97.0); BG PH 7.414 (7.350-7.450); BG PO2 75.3 mmHg (75.0-100.0); BG SAMPLE SITE RIGHT RADIAL; BG TIDAL VOLUME(mL) 500 mL; BG TOTAL HEMOGLOBIN 8.4 g/dL (12.0-18.0); BG VENT MODE VENT - A/C; BG VENT RATE 12 set
[2018-09-30] MEDS: METHYLPREDNISOLONE SOD SUCC 40 MG/ML VIAL IV SCH ×2 (08:59→20:42)
[2018-09-30] MEDS: MULTIVITAMINS,THER W-MINERALS TABLET PO SCH (08:59)
[2018-09-30] MEDS: ASPIRIN 325MG TABLET NG SCH (09:00)
[2018-09-30] MEDS: THIAMINE HCL 100MG TABLET PO SCH (09:00)
[2018-09-30] MEDS: FOLIC ACID 1MG TABLET PO SCH (09:00)
[2018-09-30] MEDS: ASCORBIC ACID 500 MG TABLET PO SCH ×2 (09:00→20:42)
[2018-09-30] MEDS: FAMOTIDINE 20MG TABLET PO SCH (09:00)
[2018-09-30] MEDS: ZINC SULFATE 220 MG ( 50 ) CAPSULE PO SCH (09:00)
[2018-09-30] MEDS: CLOPIDOGREL 75MG TABLET PO SCH (09:00)
[2018-09-30] MEDS: GUAIFENESIN/DM 600MG/30MG ER TAB 12HR PO SCH ×2 (10:30→21:27)
[2018-09-30 10:38] LABS: BG BASE EXCESS 10.5 mmol/L (-2.0-2.0); BG CARBOXYHEMOGLOBIN 1.1 % (0.5-1.5); BG DEOXYHEMOGLOBIN 8.2 % (0.0-5.0); BG FRACTION INSPIRED OXYGEN 30; BG HCO3 ACT 37.2 mmol/L (22.0-26.0); BG METHEMOGLOBIN 0.4 % (0.0-1.5); BG OXYGEN SATURATION 91.7 % (92.0-98.5); BG OXYHEMOGLOBIN 90.3 % (94.0-97.0); BG PCO2 63.9 mmHg (35.0-45.0); BG PH 7.383 (7.350-7.450); BG PRESSURE SUPPORT 8; BG SAMPLE SITE RIGHT RADIAL; BG TOTAL HEMOGLOBIN 9.2 g/dL (12.0-18.0); BG VENT MODE VENT - CPAP
[2018-09-30] MEDS: CLONIDINE 0.1MG TABLET PO PRN (10:53)
[2018-09-30 12:13] LABS: PLATELET ESTIMATE SLIGHTLY INCREASED
[2018-09-30] MEDS: NITROGLYCERIN OINT 1GM/INCH UDPKT TD SCH (13:04)
[2018-09-30] MEDS: PANTOPRAZOLE SODIUM 40 MG/VIAL IV SCH (13:51)
[2018-09-30] MEDS: LORAZEPAM 2MG/ML CPJ IV PRN (15:39)
[2018-09-30 20:10] LABS: HEMATOCRIT 24.2 % (42.0-52.0); HEMOGLOBIN 7.5 g/dL (14.0-18.0)
[2018-09-30 20:17] LABS: INR 1.1; PARTIAL THROMBOPLASTIN TIME 23.3 sec (23.4-31.0); PROTHROMBIN TIME 11.2 sec (9.1-11.1)
[2018-09-30] MEDS: ACETAMINOPHEN 325MG TABLET PO PRN (20:42)
[2018-09-30] MEDS: RISPERIDONE 0.5MG TABLET PO SCH (20:42)
[2018-10-01] VITALS (64 sets, daily range): BP systolic 121–178; BP diastolic 62–97
[2018-10-01] MEDS: IPRATROPIUM/ALBUTEROL 0.5-3(2.5)MG/3ML NEB HHN SCH ×7 (00:13→20:26)
[2018-10-01] MEDS: VANCOMYCIN 1500MG in DEXTROSE 5% WATER 250ML IV SCH ×2 (00:48→11:52)
[2018-10-01 03:03] LABS: HEMATOCRIT 27.8 % (42.0-52.0); HEMOGLOBIN 8.9 g/dL (14.0-18.0)
[2018-10-01] MEDS: MORPHINE SULFATE 4 MG/ML CPJ (NOT FOR IM USE) IV PRN ×3 (04:06→20:49)
[2018-10-01] MEDS: CLONIDINE 0.1MG TABLET PO PRN (04:51)
[2018-10-01] MEDS: PIPERACILLIN/TAZ 3.375G PREMIX 50 ML IV SCH ×4 (05:15→23:10)
[2018-10-01 06:02] LABS: HEMATOCRIT 30.2 % (42.0-52.0); HEMOGLOBIN 9.4 g/dL (14.0-18.0)
[2018-10-01] MEDS: LORAZEPAM 2MG/ML CPJ IV PRN ×2 (08:32→22:53)
[2018-10-01] MEDS: ASCORBIC ACID 500 MG TABLET PO SCH ×2 (08:53→20:48)
[2018-10-01] MEDS: CLOPIDOGREL 75MG TABLET PO SCH (08:53)
[2018-10-01] MEDS: METHYLPREDNISOLONE SOD SUCC 40 MG/ML VIAL IV SCH ×2 (08:53→20:48)
[2018-10-01] MEDS: THIAMINE HCL 100MG TABLET PO SCH (08:53)
[2018-10-01] MEDS: ASPIRIN 325MG TABLET NG SCH (08:53)
[2018-10-01] MEDS: FOLIC ACID 1MG TABLET PO SCH (08:53)
[2018-10-01] MEDS: ZINC SULFATE 220 MG ( 50 ) CAPSULE PO SCH (08:53)
[2018-10-01] MEDS: MULTIVITAMINS,THER W-MINERALS TABLET PO SCH (08:53)
[2018-10-01] MEDS: PANTOPRAZOLE SODIUM 40 MG/VIAL IV SCH (08:53)
[2018-10-01] MEDS: NITROGLYCERIN OINT 1GM/INCH UDPKT TD SCH (08:54)
[2018-10-01] MEDS: GUAIFENESIN/DM 600MG/30MG ER TAB 12HR PO SCH (10:00)
[2018-10-01 13:32] LABS: BG BASE EXCESS 8.9 mmol/L (-2.0-2.0); BG CPAP (cmH2O) 0 cm(H2O); BG DEOXYHEMOGLOBIN 5.6 % (0.0-5.0); BG HCO3 ACT 34.9 mmol/L (22.0-26.0); BG METHEMOGLOBIN 0.1 % (0.0-1.5); BG OXYGEN SATURATION 94.3 % (92.0-98.5); BG OXYHEMOGLOBIN 93.3 % (94.0-97.0); BG PCO2 56.4 mmHg (35.0-45.0); BG PO2 72.3 mmHg (75.0-100.0); BG SAMPLE SITE RIGHT RADIAL; BG TOTAL HEMOGLOBIN 10.1 g/dL (12.0-18.0); BG VENT MODE VENT - CPAP
[2018-10-01] MEDS: ACETYLCYSTEINE 100MG/ML 10% VIAL 4ML INH SCH (20:26)
[2018-10-01] MEDS: RISPERIDONE 0.5MG TABLET PO SCH (20:48)
[2018-10-01] MEDS: DEXT 5%/LACTATED RINGERS 1,000 ML IV SCH ×2 (21:48→21:50)
[2018-10-01] MEDS ORDERED: ACETYLCYSTEINE 100MG/ML 10% VIAL 4ML INH SCH (22:00)
[2018-10-02] VITALS (37 sets, daily range): BP systolic 108–170; BP diastolic 60–108
[2018-10-02] MEDS: IPRATROPIUM/ALBUTEROL 0.5-3(2.5)MG/3ML NEB HHN SCH ×6 (00:06→20:10)
[2018-10-02] MEDS: VANCOMYCIN 1500MG in DEXTROSE 5% WATER 250ML IV SCH ×2 (00:12→12:04)
[2018-10-02] MEDS: MORPHINE SULFATE 4 MG/ML CPJ (NOT FOR IM USE) IV PRN ×3 (01:03→08:12)
[2018-10-02] MEDS: PIPERACILLIN/TAZ 3.375G PREMIX 50 ML IV SCH ×3 (05:17→17:39)
[2018-10-02] MEDS: CLONIDINE 0.1MG TABLET PO PRN (05:21)
[2018-10-02 05:54] LABS: HEMATOCRIT. 28.7 % (42.0-52.0); MEAN CORPUSCULAR HEMOGLOBIN 27.2 pg (28.0-32.0); MEAN CORPUSCULAR VOLUME 86.9 fL (80.0-94.0); MEAN PLATELET VOLUME 9.5 fl (7.4-10.4); PLATELET 445 x1000/uL (130-400); RED CELL DISTRIBUTION WIDTH 18.5 % (11.6-14.6)
[2018-10-02 08:07] LABS: CHLORIDE 100 mEq/L (98-107)
[2018-10-02] MEDS: ASPIRIN 325MG TABLET NG SCH (08:11)
[2018-10-02] MEDS: METHYLPREDNISOLONE SOD SUCC 40 MG/ML VIAL IV SCH ×2 (08:11→21:34)
[2018-10-02] MEDS: PANTOPRAZOLE SODIUM 40 MG/VIAL IV SCH ×2 (08:11→17:40)
[2018-10-02] MEDS: ZINC SULFATE 220 MG ( 50 ) CAPSULE PO SCH (08:11)
[2018-10-02] MEDS: THIAMINE HCL 100MG TABLET PO SCH (08:11)
[2018-10-02] MEDS: ASCORBIC ACID 500 MG TABLET PO SCH ×2 (08:12→21:34)
[2018-10-02] MEDS: CLOPIDOGREL 75MG TABLET PO SCH (08:12)
[2018-10-02] MEDS: MULTIVITAMINS,THER W-MINERALS TABLET PO SCH (08:12)
[2018-10-02] MEDS: FOLIC ACID 1MG TABLET PO SCH (08:12)
[2018-10-02] MEDS: NITROGLYCERIN OINT 1GM/INCH UDPKT TD SCH (08:13)
[2018-10-02] MEDS: LORAZEPAM 2MG/ML CPJ IV PRN (10:07)
[2018-10-02] MEDS: ACETYLCYSTEINE 100MG/ML 10% VIAL 4ML INH SCH ×2 (11:11→20:10)
[2018-10-02] MEDS: TRAMADOL 50MG TABLET PO PRN ×2 (13:16→19:04)
[2018-10-02 15:05] LABS: PLATELET ESTIMATE SLIGHTLY INCREASED
[2018-10-02] MEDS: RISPERIDONE 0.5MG TABLET PO SCH (21:34)
[2018-10-03] VITALS (7 sets, daily range): BP systolic 113–175; BP diastolic 67–90
[2018-10-03] MEDS: IPRATROPIUM/ALBUTEROL 0.5-3(2.5)MG/3ML NEB HHN SCH ×6 (00:05→20:30)
[2018-10-03] MEDS: PIPERACILLIN/TAZ 3.375G PREMIX 50 ML IV SCH ×4 (00:54→17:01)
[2018-10-03] MEDS: ACETAMINOPHEN 325MG TABLET PO PRN (02:06)
[2018-10-03] MEDS: TRAMADOL 50MG TABLET PO PRN ×3 (02:07→16:54)
[2018-10-03] MEDS: VANCOMYCIN 1500MG in DEXTROSE 5% WATER 250ML IV SCH ×2 (02:30→13:18)
[2018-10-03] MEDS: DEXT 5%/LACTATED RINGERS 1,000 ML IV SCH (02:30)
[2018-10-03] MEDS: PANTOPRAZOLE SODIUM 40 MG/VIAL IV SCH ×2 (09:11→16:54)
[2018-10-03] MEDS: NITROGLYCERIN OINT 1GM/INCH UDPKT TD SCH (09:12)
[2018-10-03] MEDS: ASPIRIN 325MG TABLET NG SCH (09:12)
[2018-10-03] MEDS: FOLIC ACID 1MG TABLET PO SCH (09:13)
[2018-10-03] MEDS: MULTIVITAMINS,THER W-MINERALS TABLET PO SCH (09:13)
[2018-10-03] MEDS: THIAMINE HCL 100MG TABLET PO SCH (09:13)
[2018-10-03] MEDS: ASCORBIC ACID 500 MG TABLET PO SCH ×2 (09:13→20:10)
[2018-10-03] MEDS: ZINC SULFATE 220 MG ( 50 ) CAPSULE PO SCH (09:13)
[2018-10-03] MEDS: CLOPIDOGREL 75MG TABLET PO SCH (09:14)
[2018-10-03] MEDS: METHYLPREDNISOLONE SOD SUCC 40 MG/ML VIAL IV SCH (09:50)
[2018-10-03] MEDS: ACETYLCYSTEINE 100MG/ML 10% VIAL 4ML INH SCH (15:50)
[2018-10-03] MEDS: HYDROCODONE/APAP 7.5/325MG 1 TAB TABLET PO PRN (20:10)
[2018-10-03] MEDS: RISPERIDONE 0.5MG TABLET PO SCH (20:10)
[2018-10-04] VITALS: BP 163/83
[2018-10-04] MEDS: ACETYLCYSTEINE 100MG/ML 10% VIAL 4ML INH SCH ×3 (00:26→20:16)
[2018-10-04] MEDS: IPRATROPIUM/ALBUTEROL 0.5-3(2.5)MG/3ML NEB HHN SCH ×5 (00:27→20:16)
[2018-10-04] MEDS: CLONIDINE 0.1MG TABLET PO PRN (02:40)
[2018-10-04] MEDS: HYDROCODONE/APAP 7.5/325MG 1 TAB TABLET PO PRN (02:40)
[2018-10-04 04:00] VITALS: BP 132/61
[2018-10-04] MEDS: DEXT 5%/LACTATED RINGERS 1,000 ML IV SCH (05:24)
[2018-10-04 08:00] VITALS: BP 147/85
[2018-10-04] MEDS ORDERED: PREDNISONE 20MG TABLET PO SCH (09:00)
[2018-10-04] MEDS: CLOPIDOGREL 75MG TABLET PO SCH (09:55)
[2018-10-04] MEDS: PANTOPRAZOLE SODIUM 40 MG/VIAL IV SCH ×2 (09:55→17:57)
[2018-10-04] MEDS: ASPIRIN 325MG TABLET NG SCH ×2 (09:55→10:10)
[2018-10-04] MEDS: FOLIC ACID 1MG TABLET PO SCH (09:56)
[2018-10-04] MEDS: NITROGLYCERIN OINT 1GM/INCH UDPKT TD SCH (09:56)
[2018-10-04] MEDS: ZINC SULFATE 220 MG ( 50 ) CAPSULE PO SCH (09:56)
[2018-10-04] MEDS: ASCORBIC ACID 500 MG TABLET PO SCH ×2 (09:56→22:09)
[2018-10-04] MEDS: THIAMINE HCL 100MG TABLET PO SCH (09:56)
[2018-10-04] MEDS: MULTIVITAMINS,THER W-MINERALS TABLET PO SCH (09:56)
[2018-10-04 12:00] VITALS: BP 154/70
[2018-10-04 16:00] VITALS: BP_SYST 154; BP_SYST 164; BP_DIAS 75
[2018-10-04 20:44] VITALS: BP 159/78
[2018-10-04] MEDS: PHENOL/SODIUM PHENOLATE 1.4% SRPAY 177ML MM PRN (21:59)
[2018-10-04] MEDS: RISPERIDONE 0.5MG TABLET PO SCH (22:09)
[2018-10-05] MEDS: IPRATROPIUM/ALBUTEROL 0.5-3(2.5)MG/3ML NEB HHN SCH ×6 (00:14→20:43)
[2018-10-05 00:32] VITALS: BP 140/70
[2018-10-05 04:00] VITALS: BP 146/64
[2018-10-05] MEDS: PHENOL/SODIUM PHENOLATE 1.4% SRPAY 177ML MM PRN ×3 (04:31→21:41)
[2018-10-05] MEDS: DEXT 5%/LACTATED RINGERS 1,000 ML IV SCH ×2 (04:54→23:17)
[2018-10-05 08:00] VITALS: BP 139/62
[2018-10-05] MEDS: PANTOPRAZOLE SODIUM 40 MG/VIAL IV SCH ×2 (09:27→17:57)
[2018-10-05] MEDS: ASCORBIC ACID 500 MG TABLET PO SCH ×2 (09:28→21:41)
[2018-10-05] MEDS: ZINC SULFATE 220 MG ( 50 ) CAPSULE PO SCH (09:28)
[2018-10-05] MEDS: ASPIRIN 325MG TABLET NG SCH (09:28)
[2018-10-05] MEDS: THIAMINE HCL 100MG TABLET PO SCH (09:28)
[2018-10-05] MEDS: FOLIC ACID 1MG TABLET PO SCH (09:28)
[2018-10-05] MEDS: MULTIVITAMINS,THER W-MINERALS TABLET PO SCH (09:28)
[2018-10-05] MEDS: NITROGLYCERIN OINT 1GM/INCH UDPKT TD SCH (09:29)
[2018-10-05] MEDS: CLOPIDOGREL 75MG TABLET PO SCH (09:33)
[2018-10-05 12:00] VITALS: BP 163/85
[2018-10-05] MEDS: ACETAMINOPHEN 325MG TABLET PO PRN ×3 (13:37→23:26)
[2018-10-05] MEDS ORDERED: LIDOCAINE HCL 1% 20ML VIAL (Pyxis) INJ ONE (13:55)
[2018-10-05] MEDS ORDERED: SODIUM BICARBONATE 4% (2.4MEQ) 5ML VIAL IV ONE (13:55)
[2018-10-05 16:00] VITALS: BP 90/44
[2018-10-05] MEDS: THROAT LOZENGES-BENZOCAINE/MENTH/CETYLPYRD CL LOZENGES MM PRN ×2 (17:57→23:31)
[2018-10-05 20:00] VITALS: BP 128/65
[2018-10-05] MEDS: RISPERIDONE 0.5MG TABLET PO SCH (21:41)
[2018-10-05] MEDS ORDERED: PIPERACILLIN/TAZ 3.375G PREMIX 50 ML IV SCH (22:30)
[2018-10-05] MEDS: PIPERACILLIN/TAZ 3.375G PREMIX 50 ML IV SCH (23:23)
[2018-10-06] VITALS: BP 134/67
[2018-10-06] MEDS: IPRATROPIUM/ALBUTEROL 0.5-3(2.5)MG/3ML NEB HHN SCH ×4 (00:05→12:39)
[2018-10-06] MEDS: ACETYLCYSTEINE 100MG/ML 10% VIAL 4ML INH SCH ×2 (00:06→08:30)
[2018-10-06 04:00] VITALS: BP 136/59
[2018-10-06] MEDS: PIPERACILLIN/TAZ 3.375G PREMIX 50 ML IV SCH (05:52)
[2018-10-06 08:00] VITALS: BP 148/56
[2018-10-06] MEDS: PANTOPRAZOLE SODIUM 40 MG/VIAL IV SCH (09:01)
[2018-10-06] MEDS: ASCORBIC ACID 500 MG TABLET PO SCH (09:02)
[2018-10-06] MEDS: MULTIVITAMINS,THER W-MINERALS TABLET PO SCH (09:02)
[2018-10-06] MEDS: ZINC SULFATE 220 MG ( 50 ) CAPSULE PO SCH (09:02)
[2018-10-06] MEDS: ASPIRIN 325MG TABLET NG SCH (09:02)
[2018-10-06] MEDS: THIAMINE HCL 100MG TABLET PO SCH (09:02)
[2018-10-06] MEDS: ACETAMINOPHEN 325MG TABLET PO PRN (09:02)
[2018-10-06] MEDS: FOLIC ACID 1MG TABLET PO SCH (09:02)
[2018-10-06] MEDS: CLOPIDOGREL 75MG TABLET PO SCH (09:02)
[2018-10-06] MEDS: NITROGLYCERIN OINT 1GM/INCH UDPKT TD SCH (09:03)
[2018-10-06] MEDS: PHENOL/SODIUM PHENOLATE 1.4% SRPAY 177ML MM PRN ×2 (09:23→15:28)
[2018-10-06] MEDS ORDERED: LEVOFLOXACIN 250MG TABLET PO SCH (11:00)
[2018-10-06] MEDS: METRONIDAZOLE 500MG TABLET PO SCH ×2 (11:51→15:23)
[2018-10-06] MEDS: THROAT LOZENGES-BENZOCAINE/MENTH/CETYLPYRD CL LOZENGES MM PRN (11:59)
[2018-10-06 12:00] VITALS: BP 136/78
[2018-10-06 13:36] VITALS: BP 136/78
== END 2018-10-06 16:25 | DRG 870 ==
LOC: ER 13:42 → MICUSO 16:51 → EDBEDREQ 17:00 → ENRESERV 17:46 → EDBEDREQSVC 18:22 → EDBEDREQTM 18:22 → EDBEDREQ 18:22 → ENRESERV 18:39 → 5WST 10-03 01:48
PROVIDERS: ADMIT Internal Medicine; ATTEND Internal Medicine
PROC: 5A1955Z Respiratory Ventilation, Greater than 96 Consecutive Hours (ICD-10-PCS; principal; 2018-09-26)
PROC: 02HV33Z Insertion of Infusion Device into Superior Vena Cava, Percutaneous Approach (ICD-10-PCS; 2018-09-26)
PROC: B548ZZA Ultrasonography of Superior Vena Cava, Guidance (ICD-10-PCS; 2018-09-26)
PROC: 0BH18EZ Insertion of Endotracheal Airway into Trachea, Via Natural or Artificial Opening Endoscopic (ICD-10-PCS; 2018-09-26)
PROC: 30233N1 Transfusion of Nonautologous Red Blood Cells into Peripheral Vein, Percutaneous Approach (ICD-10-PCS; 2018-09-28)
DX: A41.9 Sepsis, unspecified organism (principal); J18.9 Pneumonia, unspecified organism; J96.02 Acute respiratory failure with hypercapnia; J96.01 Acute respiratory failure with hypoxia; J44.1 Chronic obstructive pulmonary disease with (acute) exacerbation; I50.22 Chronic systolic (congestive) heart failure; J44.0 Chronic obstructive pulmonary disease with (acute) lower respiratory infection; E44.0 Moderate protein-calorie malnutrition; E87.2 Acidosis; G93.40 Encephalopathy, unspecified; E87.5 Hyperkalemia; Y95 Nosocomial condition; R10.9 Unspecified abdominal pain; I11.0 Hypertensive heart disease with heart failure; D63.8 Anemia in other chronic diseases classified elsewhere; F10.20 Alcohol dependence, uncomplicated; R13.10 Dysphagia, unspecified; F17.210 Nicotine dependence, cigarettes, uncomplicated; F03.90 Unspecified dementia, unspecified severity, without behavioral disturbance, psychotic disturbance, mood disturbance, and anxiety; N40.0 Benign prostatic hyperplasia without lower urinary tract symptoms; Z86.73 Personal history of transient ischemic attack (TIA), and cerebral infarction without residual deficits; Z99.81 Dependence on supplemental oxygen; Z68.27 Body mass index [BMI] 27.0-27.9, adult; Z78.1 Physical restraint status
CPT/HCPCS: 31500; 36415; 36556; 36600; 70490; 71045; 74018; 74176; 80048; 80061; 80076; 80202; 82270; 82375; 82550; 82553; 82607; 82728; 82746; 82805; 82962; 83036; 83540; 83550; 83605; 83880; 84145; 84478; 84484; 85014; 85018; 86850; 86900; 86920; 87804; 92610; 93005; 93970; 94002; 94003; 94640; 94660; 96361; 96365; 96375; 97163; 97166; 99291; C1893; C9113; G0482; J0330; J1650; J2060; J2270; J2543; J2704; J2920; J2930; J3370; J3411; J3490; J7030; J7050; J7060; J7512; J7608; J7620; P9016; A4315

== ENCOUNTER 2019-01-17 16:54 | Inpatient (IN) | payer MEDICARE, MEDICAID ==
[~2019-01-17] VITALS: Ht 175.3 cm; Wt 76.2 kg
[~2019-01-17 16:54] MED LIST changes: +DIPH25TA24 PO; +FOLI-43 PO; +GUAI600T26 PO; +MAG30ORA PO; +SEREDK ORI; +THIA100T13 PO
[2019-01-17 18:10] LABS: BASOPHILS % 0.4 % (0.0-2.0); EOSINOPHILS % 0.8 % (0.0-5.0); HEMATOCRIT. 31.4 % (42.0-52.0); HEMOGLOBIN. 10.3 g/dL (14.0-18.0); LYMPHOCYTES % 8.8 % (20.0-50.0); MEAN CORPUSCULAR HEMOGLOBIN 29.6 pg (28.0-32.0); MEAN CORPUSCULAR VOLUME 90.6 fL (80.0-94.0); MEAN PLATELET VOLUME 9.2 fl (7.4-10.4); MONOCYTES % 4.9 % (2.0-8.0); NEUTROPHILS % 85.1 % (40.0-76.0); PLATELET 308 x1000/uL (130-400); RED BLOOD CELL COUNT 3.46 mill/uL (4.7-6.1); RED CELL DISTRIBUTION WIDTH 15.2 % (11.6-14.6)
[2019-01-17 18:11] LABS: CHLORIDE 93 mEq/L (98-107)
[2019-01-17 18:15] LABS: ETHANOL BLOOD < 10 mg/dL
[2019-01-17 18:23] LABS: BG BASE EXCESS 6.5 mmol/L (-2.0-2.0); BG CARBOXYHEMOGLOBIN 0.4 % (0.5-1.5); BG DEOXYHEMOGLOBIN 2.2 % (0.0-5.0); BG FRACTION INSPIRED OXYGEN 28; BG HCO3 ACT 32.9 mmol/L (22.0-26.0); BG METHEMOGLOBIN 0.2 % (0.0-1.5); BG OXYGEN SATURATION 97.8 % (92.0-98.5); BG OXYHEMOGLOBIN 97.2 % (94.0-97.0); BG PCO2 56.3 mmHg (35.0-45.0); BG PH 7.385 (7.350-7.450); BG PO2 101.5 mmHg (75.0-100.0); BG SAMPLE SITE RIGHT RADIAL; BG TOTAL HEMOGLOBIN 11.3 g/dL (12.0-18.0); BG VENT MODE NASAL CANNULA
[2019-01-17 18:31] LABS: INR 1.1; PROTHROMBIN TIME 10.9 sec (9.1-11.1)
[2019-01-17 18:45] LABS: CLARITY URINE CLEAR (CLEAR); COLOR URINE YELLOW (YELLOW); KETONES URINE NEGATIVE (NEGATIVE); LEUKOCYTE ESTERASE URINE NEGATIVE (NEGATIVE); NITRITE URINE NEGATIVE (NEGATIVE); OCCULT BLOOD URINE NEGATIVE (NEGATIVE); PH URINE 8.5 (4.5-8.0); PROTEIN URINE NEGATIVE (NEGATIVE); SPECIFIC GRAVITY URINE 1.021 (1.005-1.030); UROBILINOGEN URINE 0.2 E.U./dL (0.2-1.0)
[2019-01-17 18:54] LABS: METHADONE URINE SCREEN NEGATIVE (NEGATIVE)
[2019-01-17 18:55] LABS: *AMPHETAMINES SCREEN URINE NEGATIVE (NEGATIVE); *BARBITURATES SCREEN URINE NEGATIVE (NEGATIVE); *BENZODIAZEPINES SCREEN URINE NEGATIVE (NEGATIVE); *COCAINE SCREEN URINE NEGATIVE (NEGATIVE); CANNABINOID URINE SCREEN NEGATIVE (NEGATIVE); OPIATES URINE SCREEN PRESUMTIVE POSITIVE (NEGATIVE); PHENCYCLIDINE URINE SCREEN NEGATIVE (NEGATIVE)
[2019-01-17] MEDS ORDERED: MAGNESIUM/ALUMINUM HYDROXIDE/SIMETHICONE 30ML UDC PO PRN (21:30)
[2019-01-17] MEDS ORDERED: ONDANSETRON HCL 4MG/2ML INJ IV PRN (21:30)
[2019-01-17] MEDS ORDERED: ACETAMINOPHEN 325MG TABLET PO PRN (21:30)
[2019-01-17] MEDS ORDERED: NA PHOS,M-B/NA PHOS,DI-BA ENEMA 118ML PR PRN (21:30)
[2019-01-17] MEDS ORDERED: ZOLPIDEM TARTRATE 5MG TABLET PO PRN (21:30)
[2019-01-17] MEDS ORDERED: GUAIFENESIN 200MG/10ML SUGAR FREE UDC PO PRN (21:30)
[2019-01-17] MEDS ORDERED: CLONIDINE 0.1MG TABLET PO PRN (21:30)
[2019-01-17] MEDS ORDERED: DOCUSATE SODIUM 100MG CAPSULE PO PRN (21:30)
[2019-01-17] MEDS ORDERED: IPRATROPIUM/ALBUTEROL 0.5-3(2.5)MG/3ML NEB INH PRN (21:30)
[2019-01-17] MEDS ORDERED: IPRATROPIUM/ALBUTEROL 0.5-3(2.5)MG/3ML NEB HHN SCH (21:30)
[2019-01-17] MEDS ORDERED: LORAZEPAM 0.5MG TABLET PO PRN (21:30)
[2019-01-17] MEDS ORDERED: LEVOFLOXACIN 500MG PREMIX 100 ML IV NR (22:15)
[2019-01-17 22:46] LABS: FOLIC ACID (FOLATE) SERUM > 20.00 ng/mL (>5.38); VITAMIN B12 SERUM 428 pg/mL (211-911)
[2019-01-17 23:49] LABS: CREATINE KINASE 59 IU/L (39-308)
[2019-01-17 23:50] LABS: CREATINE KINASE MB FRACTION 1.4 ng/mL (0.5-3.6)
[2019-01-18 05:27] LABS: CREATINE KINASE 60 IU/L (39-308)
[2019-01-18 05:28] LABS: CREATINE KINASE MB FRACTION 1.7 ng/mL (0.5-3.6)
[2019-01-18] MEDS: TRAMADOL 50MG TABLET PO PRN ×2 (05:50→18:59)
[2019-01-18] MEDS: METHYLPREDNISOLONE SOD SUCC 125 MG/2 ML VIAL IV SCH ×3 (06:18→21:58)
[2019-01-18] MEDS: SUCRALFATE 1 G/10 ML UDC PO SCH ×4 (06:21→20:54)
[2019-01-18 06:30] VITALS: BP 146/82
[2019-01-18 08:20] VITALS: BP 160/96
[2019-01-18] MEDS ORDERED: AMLODIPINE 10MG TABLET PO SCH (09:00)
[2019-01-18] MEDS: PANTOPRAZOLE SODIUM 40 MG/VIAL IV SCH (09:24)
[2019-01-18] MEDS: LISINOPRIL 20MG TABLET PO SCH ×2 (09:25→20:54)
[2019-01-18] MEDS: ASPIRIN 325MG EC TABLET PO SCH (09:25)
[2019-01-18] MEDS: GUAIFENESIN/DM 600MG/30MG ER TAB 12HR PO SCH ×2 (09:25→20:53)
[2019-01-18] MEDS: ENOXAPARIN 40MG/0.4ML SYR SUBCUT SCH (09:26)
[2019-01-18 12:30] VITALS: BP 140/66
[2019-01-18] MEDS: IPRATROPIUM/ALBUTEROL 0.5-3(2.5)MG/3ML NEB HHN SCH ×3 (13:41→21:04)
[2019-01-18 16:30] VITALS: BP 144/88
[2019-01-18 20:00] VITALS: BP 130/76
[2019-01-18] MEDS: DILTIAZEM HCL 60MG TABLET PO SCH (20:54)
[2019-01-18] MEDS ORDERED: LEVOFLOXACIN 500MG PREMIX 100 ML IV SCH (23:00)
[2019-01-18] MEDS: LEVOFLOXACIN 500MG PREMIX 100 ML IV SCH (23:01)
[2019-01-19] VITALS (9 sets, daily range): BP systolic 97–121; BP diastolic 55–65
[2019-01-19] MEDS: IPRATROPIUM/ALBUTEROL 0.5-3(2.5)MG/3ML NEB HHN SCH ×6 (00:02→20:41)
[2019-01-19] MEDS: DILTIAZEM HCL 60MG TABLET PO SCH ×4 (00:09→17:27)
[2019-01-19] MEDS: HYDROCODONE/ACETAMINOPHEN 10/325MG TABLET PO PRN ×4 (00:10→20:35)
[2019-01-19] MEDS: SUCRALFATE 1 G/10 ML UDC PO SCH ×4 (06:29→20:34)
[2019-01-19] MEDS: METHYLPREDNISOLONE SOD SUCC 125 MG/2 ML VIAL IV SCH ×3 (06:30→22:50)
[2019-01-19] MEDS: GUAIFENESIN/DM 600MG/30MG ER TAB 12HR PO SCH ×2 (08:39→20:34)
[2019-01-19] MEDS: PANTOPRAZOLE SODIUM 40 MG/VIAL IV SCH (08:39)
[2019-01-19] MEDS: LISINOPRIL 20MG TABLET PO SCH ×2 (08:39→20:34)
[2019-01-19] MEDS: ASPIRIN 325MG EC TABLET PO SCH (08:39)
[2019-01-19] MEDS: ENOXAPARIN 40MG/0.4ML SYR SUBCUT SCH (08:40)
[2019-01-19] MEDS: LEVOFLOXACIN 500MG PREMIX 100 ML IV SCH (22:50)
[2019-01-20] VITALS (7 sets, daily range): BP systolic 119–146; BP diastolic 44–78
[2019-01-20] MEDS: IPRATROPIUM/ALBUTEROL 0.5-3(2.5)MG/3ML NEB HHN SCH ×6 (00:39→20:00)
[2019-01-20] MEDS: DILTIAZEM HCL 60MG TABLET PO SCH ×4 (05:46→18:13)
[2019-01-20] MEDS: METHYLPREDNISOLONE SOD SUCC 125 MG/2 ML VIAL IV SCH ×2 (05:46→14:00)
[2019-01-20] MEDS: SUCRALFATE 1 G/10 ML UDC PO SCH ×3 (05:46→18:14)
[2019-01-20] MEDS: HYDROCODONE/ACETAMINOPHEN 10/325MG TABLET PO PRN ×3 (05:47→18:14)
[2019-01-20] MEDS ORDERED: FAMOTIDINE 20MG/2ML VIAL IV SCH (09:00)
[2019-01-20] MEDS: ASPIRIN 325MG EC TABLET PO SCH (09:23)
[2019-01-20] MEDS: LISINOPRIL 20MG TABLET PO SCH (09:24)
[2019-01-20] MEDS: GUAIFENESIN/DM 600MG/30MG ER TAB 12HR PO SCH (09:25)
[2019-01-20] MEDS: ENOXAPARIN 40MG/0.4ML SYR SUBCUT SCH (09:25)
[2019-01-20] MEDS ORDERED: IOHEXOL-300 100 ML BOTTLE ONE (14:37)
== END 2019-01-20 21:00 | DRG 189 ==
LOC: ER 16:54 → 6WST 21:14 → EDBEDREQTM 21:20 → EDBEDREQ 21:20 → ENRESERV 01-18 02:34
PROVIDERS: ADMIT Internal Medicine; ATTEND Internal Medicine
DX: J96.00 Acute respiratory failure, unspecified whether with hypoxia or hypercapnia (principal); J44.1 Chronic obstructive pulmonary disease with (acute) exacerbation; E87.1 Hypo-osmolality and hyponatremia; I11.0 Hypertensive heart disease with heart failure; D64.9 Anemia, unspecified; N41.9 Inflammatory disease of prostate, unspecified; I25.10 Atherosclerotic heart disease of native coronary artery without angina pectoris; I50.9 Heart failure, unspecified; F10.20 Alcohol dependence, uncomplicated; F12.10 Cannabis abuse, uncomplicated; F14.10 Cocaine abuse, uncomplicated; F17.200 Nicotine dependence, unspecified, uncomplicated; R91.8 Other nonspecific abnormal finding of lung field; N40.0 Benign prostatic hyperplasia without lower urinary tract symptoms; L89.629 Pressure ulcer of left heel, unspecified stage; Z74.01 Bed confinement status; Z79.899 Other long term (current) drug therapy; Z79.2 Long term (current) use of antibiotics; Z86.73 Personal history of transient ischemic attack (TIA), and cerebral infarction without residual deficits; Z86.718 Personal history of other venous thrombosis and embolism
CPT/HCPCS: 36415; 36600; 71045; 71270; 80061; 80305; 80320; 82140; 82375; 82550; 82553; 82607; 82746; 82805; 83036; 83540; 83550; 83880; 84443; 84484; 87070; 87430; 93005; 93970; 94640; 96374; 96375; 99285; C9113; J1650; J1956; J2930; J3490; J7040; J7620; Q9967; G0480